=== PATIENT | female | born 1975 | race Caucasian/White ===

== ENCOUNTER 2017-07-08 15:26 | Emergency (ER) | payer SELFPAY ==
[2017-07-08] MEDS ORDERED: SODIUM CHLORIDE 1,000 ML IV STA (16:30)
[2017-07-08 17:35] LABS: BASO % 0.3 % (0-2.0); EOS % 4.6 % (0-4.5); HEMATOCRIT 33.2 % (32.4-45.2); HEMOGLOBIN 11.2 GM/dL (10.7-15.3); LYMPH % 24.2 % (8-40); MCHC 33.6 g/dl (32.0-36.0); MEAN CELL VOLUME 86.2 fl (80-96); MEAN PLT VOLUME 8.4 fl (7.5-11.1); MONO % 7.8 % (3.8-10.2); NEUT % 63.1 % (42.8-82.8); PLATELET COUNT 163 K/MM3 (134-434); RBC 3.85 M/mm3 (3.60-5.2); RDW 13.1 % (11.6-15.6)
[2017-07-08 17:48] LABS: INR 1.1 (0.82-1.09); PROTHROMBIN TIME (PATIENT) 12.4 SEC (9.98-11.88)
[2017-07-08 18:28] VITALS: TEMP 97.5; BMI 32.5
[2017-07-08] MEDS ORDERED: MISOPROSTOL 100 MCG TABLET PV ONE (21:29)
--- NOTE | 2017-07-08 21:33 | PDOC ---
History of Present Illness - General History Source: Patient Exam Limitations: No Limitations - History of Present Illness Initial Comments: 07/08/17 22:11 Patient is a 41 year old female with a significant past medical history of who presents to the ED with complaints of vaginal bleeding that began earlier today. Patient reports coming into the ED on May and was given US that showed demise at 8 weeks. She reports experiencing diffuse abdominal pain that began earlier this morning secondary to vaginal bleeding. Patient reports her last miscarriage was in 2014 prior to this one. Patient currently says she is here for a DNC. Denies nausea, vomiting. Denies chest pain, SOB. Denies contact with sick individuals, out of state travelling. Denies dysuria, constipation, diarrhea. Denies any other symptoms. Allergies: None Social history: Lives with . No smoking. No alcohol. No illicit drugs. Surgical history: x3. 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 <Venkatesh Calvo - Last Filed: 07/08/17 22:11> <Svetlana Zapata - Last Filed: 07/08/17 23:39> - General Chief Complaint: Vaginal Bleeding Stated Complaint: VAGINAL BLEED Time Seen by Provider: 07/08/17 16:30 Past History <Venkatesh Calvo - Last Filed: 07/08/17 22:11> - Past Medical History COPD: No - Reproductive History Is Patient Now?: Yes (#): 7 Para: 3 Cervical CA: No Dysfunctional Uterine Bleeding: No Ectopic : No Endometrial CA: No Polycystic Ovaries: No Therapeutic (s) & number: Yes Tubal Ligation: No Spontaneous : 0 - Immunization History Immunization Up to Date: Yes - Suicide/Smoking/Psychosocial Hx Smoking Status: No Smoking History: Never smoked Have you smoked in the past 12 months: No Number of Cigarettes Smoked Daily: 0 Information on smoking cessation initiated: No Hx Alcohol Use: No Drug/Substance Use Hx: No Substance Use Type: None <Svetlana Zapata - Last Filed: 07/08/17 23:39> - Past Medical History Allergies/Adverse Reactions: Allergies Allergy/AdvReac Type Severity Reaction Status Date / Time No Known Allergies Allergy Verified 07/08/17 18:28 Home Medications: Ambulatory Orders No Home Medications 0 dose .ROUTE UTDICT 04/30/12 Review of Systems - Review of Systems Able to Perform ROS?: Yes Comments:: 07/08/17 22:11 CONSTITUTIONAL: Absent: fever, chills, diaphoresis, generalized weakness, malaise, loss of appetite HEENT: Absent: rhinorrhea, nasal congestion, throat pain, throat swelling, difficulty swallowing, mouth swelling, ear pain, eye pain, visual Changes CARDIOVASCULAR: Absent: chest pain, syncope, palpitations, irregular heart rate, lightheadedness , peripheral edema RESPIRATORY: Absent: cough, shortness of breath, dyspnea with exertion, orthopnea, wheezing, stridor, hemoptysis GASTROINTESTINAL: +Abdominal pain. Absent: abdominal distension, nausea, vomiting, diarrhea, constipation, melena, hematochezia GENITOURINARY: +Vaginal bleeding. Absent: dysuria, frequency, urgency, hesitancy, hematuria, flank pain, genital pain MUSCULOSKELETAL: Absent: myalgia, arthralgia, joint swelling SKIN: Absent: rash, itching, pallor HEMATOLOGIC/IMMUNOLOGIC: Absent: easy bleeding, easy bruising, lymphadenopathy, frequent infections ENDOCRINE: Absent: unexplained weight gain, unexplained weight loss, heat intolerance, cold intolerance NEUROLOGIC: Absent: headache, focal weakness or paresthesias, dizziness, unsteady gait, seizure, mental status changes, bladder or bowel incontinence PSYCHIATRIC: Absent: anxiety, depression, suicidal or homicidal ideation, hallucinations. All Other Systems: Reviewed and Negative <Venkatesh Calvo - Last Filed: 07/08/17 22:11> *Physical Exam - Vital Signs Last Vital Signs Temp Pulse Resp BP Pulse Ox 97.5 F L 103 H 18 88/59 100 07/08/17 18:23 07/08/17 21:02 07/08/17 21:02 07/08/17 21:02 07/08/17 21:02 - Physical Exam Comments: 07/08/17 22:12 GENERAL: Well developed, well nourished. Awake and alert. No acute distress. HEENT: Normocephalic, atraumatic. PERRLA, EOMI. No conjunctival pallor. Sclera are non- icteric. Moist mucous membranes. Oropharynx is clear. NECK: Supple. Full ROM. No JVD. Carotid pulses 2+ and symmetric, without bruits. No thyromegaly. No lymphadenopathy. CARDIOVASCULAR: Regular rate and rhythm. No murmurs, rubs, or gallops. Distal pulses are 2+ and symmetric. PULMONARY: No evidence of respiratory distress. Lungs clear to auscultation bilaterally. No wheezing, rales or rhonchi. ABDOMINAL: Soft. Non-tender. Non-distended. No rebound or guarding. No organomegaly. Normoactive bowel sounds. PELVIC: +Actively bleeding. +Passing large clots. MUSCULOSKELETAL Normal range of motion at all joints. No bony deformities or tenderness. No CVA tenderness. EXTREMITIES: No cyanosis. No clubbing. No edema. No calf tenderness. SKIN: Warm and dry. Normal capillary refill. No rashes. No jaundice. NEUROLOGICAL: Alert, awake, appropriate. Cranial nerves 2-12 intact. No deficits to light touch and temperature in face, upper extremities and lower extremities. No motor deficits in the in face, upper extremities and lower extremities. Normoreflexic in the upper and lower extremities. Normal speech. Toes are down-going bilaterally. PSYCHIATRIC: Cooperative. Good eye contact. Appropriate mood and affect. <Venkatesh Calvo - Last Filed: 07/08/17 22:11> - Vital Signs Last Vital Signs Temp Pulse Resp BP Pulse Ox 97.5 F L 103 H 18 88/59 100 07/08/17 18:23 07/08/17 21:02 07/08/17 21:02 07/08/17 21:02 07/08/17 21:02 <Svetlana Zapata - Last Filed: 07/08/17 23:39> ED Treatment Course - LABORATORY CBC & Chemistry Diagram: 07/08/17 17:18 - ADDITIONAL ORDERS Additional order review: Laboratory Results 07/08/17 07/08/17 07/08/17 19:52 19:11 17:18 PT with INR INR Beta HCG, Quant 56.7 Serum , Qual Positive Blood Type O POSITIVE Antibody Screen Negative 07/08/17 17:18 PT with INR 12.40 H INR 1.10 Beta HCG, Quant Serum , Qual Blood Type Antibody Screen 07/08/17 17:18 RBC 3.85 MCV 86.2 MCHC 33.6 RDW 13.1 MPV 8.4 Neutrophils % 63.1 D Lymphocytes % 24.2 Monocytes % 7.8 Eosinophils % 4.6 H Basophils % 0.3 - Medications Given in the ED: ED Medications Discontinued Medications Generic Name Dose Route Start Last Admin Trade Name Freq PRN Reason Stop Dose Admin Sodium Chloride 1,000 mls @ 1,000 mls/hr 07/08/17 16:30 07/08/17 16:42 Normal Saline - IV 07/08/17 17:29 1,000 mls/hr ASDIR STA Administration Misoprostol 600 mcg 07/08/17 21:29 07/08/17 22:11 Cytotec PV 07/08/17 21:30 600 mcg ONCE ONE Administration <Venkatesh Calvo - Last Filed: 07/08/17 22:11> - LABORATORY CBC & Chemistry Diagram: 07/08/17 22:08 - ADDITIONAL ORDERS Additional order review: Laboratory Results 07/08/17 07/08/17 07/08/17 19:52 19:11 17:18 PT with INR INR Beta HCG, Quant 56.7 Serum , Qual Positive Blood Type O POSITIVE Antibody Screen Negative 07/08/17 17:18 PT with INR 12.40 H INR 1.10 Beta HCG, Quant Serum , Qual Blood Type Antibody Screen 07/08/17 17:18 RBC 3.85 MCV 86.2 MCHC 33.6 RDW 13.1 MPV 8.4 Neutrophils % 63.1 D Lymphocytes % 24.2 Monocytes % 7.8 Eosinophils % 4.6 H Basophils % 0.3 - RADIOLOGY Radiology Studies Ordered: Category Date Time Status TRANSVAGINAL US PREG [US] Stat Ultrasound 07/08/17 19:52 Completed - Medications Given in the ED: ED Medications Discontinued Medications Generic Name Dose Route Start Last Admin Trade Name Freq PRN Reason Stop Dose Admin Sodium Chloride 1,000 mls @ 1,000 mls/hr 07/08/17 16:30 07/08/17 16:42 Normal Saline - IV 07/08/17 17:29 1,000 mls/hr ASDIR STA Administration <Svetlana Zapata - Last Filed: 07/08/17 23:39> *DC/Admit/Observation/Transfer - Attestations Scribe Attestion: 07/08/17 22:12 Documentation prepared by Venkatesh Calvo, acting as registered medical assistant for Svetlana Zapata MD/DO. <Venkatesh Calvo - Last Filed: 07/08/17 22:11> <Svetlana Zapata Denisse - Last Filed: 07/08/17 23:39> Diagnosis at time of Disposition: Complete Anemia Qualifiers: Anemia type: other cause Other causes of anemia: other cause, not classified Qualified Code(s): D64.89 - Other specified anemias - Discharge Dispostion Disposition: HOME Condition at time of disposition: Stable - Referrals Referrals: Viviana Galvan MD [Staff Physician] - Nicholas Meza MD [Staff Physician] - - Patient Instructions Printed Discharge Instructions: DI for Miscarriage Additional Instructions: You need to follow up with your radio assembler or the clinic at [address] [place] [address] [phone] Print Language: BRUNEIAN
--- NOTE | 2017-07-08 21:48 | CON.OBG ---
Consult Consult Specialty:: Gynecology Referred by:: ER - History of Present Illness Chief Complaint: 41yo P4 I was told she was seen in the [facility] practice by Dr. Louise,. however no record of her in [facility] EMR. As per h/o documented IUP in May and HCG = 8000. She denies pain, and dizziness, had some bleeding - History Source History Provided By: Patient Limitations to Obtaining History: Language Barrier - Past Medical History ...LMP: 01/25/15 ...: Yes ...: 6 (SAB x 1) ...Para: 4 ( x 1, c/s x 1) - Past Surgical History Past Surgical History: Yes: (x3) - Alcohol/Substance Use Hx Alcohol Use: No History of Substance Use: reports: None - Smoking History Smoking history: Never smoked Have you smoked in the past 12 months: No Aproximately how many cigarettes per day: 0 Home Medications - Allergies Allergies/Adverse Reactions: Allergies Allergy/AdvReac Type Severity Reaction Status Date / Time No Known Allergies Allergy Verified 07/08/17 18:28 - Home Medications Home Medications: Ambulatory Orders No Home Medications 0 dose .ROUTE UTDICT 04/30/12 Review of Systems - Review of Systems Constitutional: reports: No Symptoms Neck: reports: No Symptoms Cardiovascular: reports: No Symptoms Respiratory: reports: No Symptoms Gastrointestinal: reports: No Symptoms Genitourinary: reports: No Symptoms Integumentary: reports: No Symptoms Neurological: reports: No Symptoms Endocrine: reports: No Symptoms Hematology/Lymphatic: reports: No Symptoms Psychiatric: reports: No Symptoms Pain Intensity: 1 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 Vital Signs: Vital Signs Temperature 97.5 F L 07/08/17 18:23 Pulse Rate 103 H 07/08/17 21:02 Respiratory Rate 18 07/08/17 21:02 Blood Pressure 88/59 07/08/17 21:02 O2 Sat by Pulse Oximetry (%) 100 07/08/17 21:02 Constitutional: Yes: Well Nourished Eyes: Yes: WNL HENT: Yes: WNL Neck: Yes: WNL Cardiovascular: Yes: WNL Respiratory: Yes: WNL Gastrointestinal: Yes: WNL, Normal Bowel Sounds, Soft Pelvis: Yes: WNL External Genitalia: Yes: Normal Internal Exam Deferred: Yes Vaginal Exam: Yes: Bleeding (minimal) Cervix: Yes: Normal (closed, no CMT) Uterus: Yes: Normal Extremities: Yes: WNL Neurological: Yes: WNL ...Motor Strength: WNL Labs: CBC, BMP 07/08/17 17:18 Assessment/Plan 41yo P4 with HCG - 56, Rh+, closed cervix, minimal bleeding currently, 2.5cm endometrium c/w blood clot Presentation c/w completed Ab Recommend 600mcg Cytotec vaginaly to expel remaining blood clot Repeat h/h and Vitals to make sure stable for discharge F/up in the clinic in 1 week Nothing vaginally for 2 weeks, patient instructed
[2017-07-08 22:12] VITALS: BP 104/67; PULSE 92
[2017-07-08 23:05] LABS: HEMOGLOBIN 9.7 GM/dL (10.7-15.3)
[2017-07-08 23:16] LABS: BASO % 0.3 % (0-2.0); EOS % 6.6 % (0-4.5); HEMATOCRIT 29.1 % (32.4-45.2); MCH 29.2 pg (25.7-33.7); MCHC 33.5 g/dl (32.0-36.0); MEAN CELL VOLUME 87.1 fl (80-96); MEAN PLT VOLUME 8.3 fl (7.5-11.1); MONO % 6.3 % (3.8-10.2); NEUT % 56.8 % (42.8-82.8); PLATELET COUNT 151 K/MM3 (134-434); RBC 3.34 M/mm3 (3.60-5.2); RDW 12.7 % (11.6-15.6); WHITE BLOOD COUNT 8.3 K/mm3 (4.0-10.0)
[2017-07-08] MEDS ORDERED: IBUPROFEN 400 MG TABLET (FP) PO ONE (23:22)
== END 2017-07-08 23:52 | disposition home or self-care (01) ==
LOC: JER 15:26
PROC: 3E0337Z Introduction of Electrolytic and Water Balance Substance into Peripheral Vein, Percutaneous Approach (ICD-10-PCS; principal; 2017-07-08)
DX: O26.891 Other specified pregnancy related conditions, first trimester (principal); O03.9 Complete or unspecified spontaneous abortion without complication; Z3A.00 Weeks of gestation of pregnancy not specified
CPT/HCPCS: 36415; 76817-TC; 84702; 84703; 85025; 85610; 86850; 86900; 86901; 99284-25

== ENCOUNTER 2017-07-20 23:17 | Emergency (ER) | payer OTHER ==
[2017-07-20 23:31] VITALS: BP 102/65; PULSE 88; TEMP 98.5; BMI 29.8
--- NOTE | 2017-07-21 02:20 | PDOC ---
History of Present Illness - General Chief Complaint: Vaginal Sxs Stated Complaint: HEADACHE/FEVER Time Seen by Provider: 07/21/17 00:45 History Source: Patient Exam Limitations: No Limitations - History of Present Illness Travel History: No Initial Comments: 07/21/17 02:21 41-year-old female with no medical history presents to the emergency department complaining of fever/Tmax 100.5. Patient states she comes to the emergency department today due to a foul vaginal odor/pinkish discharge times one day without chills, nausea/vomiting, headache, dizziness, lightheadedness, neck stiffness/pain, nasal congestion, rhinorrhea, earache, sore throat, cough,'s shortness of breath, abdominal pains, flank pains, urinary symptoms: Frequency/ urgency/hesitancy, hematuria. Past History - Past Medical History Allergies/Adverse Reactions: Allergies Allergy/AdvReac Type Severity Reaction Status Date / Time No Known Allergies Allergy Verified 07/20/17 23:24 Home Medications: Ambulatory Orders No Home Medications 0 dose .ROUTE UTDICT 04/30/12 Metronidazole 0.75% Vag. Gel [Metrogel 0.75% *Vaginal Gel* -] 1 applic VG HS #1 tube 07/21/17 COPD: No - Reproductive History (#): 7 Para: 3 Cervical CA: No Dysfunctional Uterine Bleeding: No Ectopic : No Endometrial CA: No Polycystic Ovaries: No Therapeutic (s) & number: Yes Tubal Ligation: No Spontaneous : 0 - Immunization History Immunization Up to Date: Yes - Suicide/Smoking/Psychosocial Hx Smoking Status: No Smoking History: Never smoked Have you smoked in the past 12 months: No Number of Cigarettes Smoked Daily: 0 Hx Alcohol Use: No Drug/Substance Use Hx: No Substance Use Type: None Review of Systems - Review of Systems Able to Perform ROS?: Yes Comments:: 07/21/17 02:18 CONSTITUTIONAL: +subjective fever/chills Absent: diaphoresis, generalized weakness, malaise, loss of appetite HEENT: Absent: rhinorrhea, nasal congestion, throat pain, throat swelling, difficulty swallowing, mouth swelling, ear pain, eye pain, visual Changes CARDIOVASCULAR: Absent: chest pain, loss of consciousness, palpitations, irregular heart rate, peripheral edema RESPIRATORY: Absent: cough, shortness of breath, dyspnea with exertion, orthopnea, wheezing, stridor, hemoptysis GASTROINTESTINAL: Absent: abdominal pain, abdominal distension, nausea, vomiting, diarrhea, constipation, melena, hematochezia GENITOURINARY: Absent: dysuria, frequency, urgency, hesitancy, hematuria, flank pain, genital pain MUSCULOSKELETAL: Absent: myalgia, arthralgia, joint swelling SKIN: Absent: rash, itching, pallor HEMATOLOGIC/IMMUNOLOGIC: Absent: easy bleeding, easy bruising, lymphadenopathy, frequent infections ENDOCRINE: Absent: unexplained weight gain, unexplained weight loss, heat intolerance, cold intolerance Is the patient limited Yakut proficient: No *Physical Exam - Vital Signs Last Vital Signs Temp Pulse Resp BP Pulse Ox 98.5 F 88 20 102/65 99 07/20/17 23:24 07/20/17 23:24 07/20/17 23:24 07/20/17 23:24 07/20/17 23:24 - Physical Exam Comments: 07/21/17 02:19 GENERAL: Well developed, well nourished. Awake and alert. No acute distress. HEENT: Normocephalic, atraumatic. PERRLA, EOMI. No conjunctival pallor. Sclera are non- icteric. Moist mucous membranes. Oropharynx is clear. NECK: Supple. Full ROM. No JVD. Carotid pulses 2+ and symmetric, without bruits. No thyromegaly. No lymphadenopathy. CARDIOVASCULAR: Regular rate and rhythm. No murmurs, rubs, or gallops. Distal pulses are 2+ and symmetric. PULMONARY: No evidence of respiratory distress. Lungs clear to auscultation bilaterally. No wheezing, rales or rhonchi. ABDOMINAL: Soft. Non-tender. Non-distended. No rebound or guarding. No organomegaly. Normoactive bowel sounds. MUSCULOSKELETAL Normal range of motion at all joints. No bony deformities or tenderness. No CVA tenderness. EXTREMITIES: No cyanosis. No clubbing. No edema. No calf tenderness. SKIN: Warm and dry. Normal capillary refill. No rashes. No jaundice. Pelvic: External genitalia normal without lesions. Vaginal vault is copious cottage cheese like discharge. Cervix is long and closed. No cervical motion tenderness. Uterus is nontender and normal in size. Adnexa are nontender and without masses. 07/21/17 02:57 Progress Note - Progress Note Progress Note: Pt req for HIV test *DC/Admit/Observation/Transfer Diagnosis at time of Disposition: Bacterial vaginosis - Discharge Dispostion Condition at time of disposition: Stable Admit: No - Prescriptions Prescriptions: Metronidazole 0.75% Vag. Gel [Metrogel 0.75% *Vaginal Gel* -] 1 applic VG HS #1 tube - Referrals Referrals: George Celaya MD [Staff Physician] - - Patient Instructions Printed Discharge Instructions: DI for Bacterial Vaginosis Additional Instructions: Increase fluids Pelvic rest Medication as prescribed Return back to the emergency department for severe/persistent or worsening symptoms Follow-up with your supervisor vacuum metalizing or the one listed on your discharge - Post Discharge Activity
[2017-07-21] MEDS ORDERED: metroNIDAZOLE 0.75% VAGINAL GEL 70 GM TUBE VG ONE (03:41)
== END 2017-07-21 04:19 | disposition home or self-care (01) ==
LOC: JER 23:17
DX: N76.0 Acute vaginitis (principal); B96.89 Other specified bacterial agents as the cause of diseases classified elsewhere
CPT/HCPCS: 36415; 84702; 87389; 99282-25

== ENCOUNTER 2017-10-07 10:22 | Emergency (ER) | payer OTHER ==
[2017-10-07 10:29] VITALS: BP 100/49; PULSE 90; TEMP 97.7; BMI 30.2
--- NOTE | 2017-10-07 11:14 | PDOC ---
*Physical Exam - Vital Signs Last Vital Signs Temp Pulse Resp BP Pulse Ox 97.7 F 90 18 100/49 100 10/07/17 10:26 10/07/17 10:26 10/07/17 10:26 10/07/17 10:26 10/07/17 10:26 Medical Decision Making - Medical Decision Making 10/07/17 14:32 Ms Crenshaw is a 41 yo F with a history of hematuria Pt UA consistent with UTI Laboratory Tests 10/07/17 11:55 Urine Blood 2+ H Urine Nitrite Positive Ur Leukocyte Esterase 3+ H Urine WBC (Auto) 241 Urine RBC (Auto) 76 Patient was seen as well by physician bioinformatics assistant who performed the history and physical exam and has also dictated a record of this visit. Patient provided with appropriate treatment management and follow-up care instructions. I agree with plan per PA. For further details please see PA dictation. *DC/Admit/Observation/Transfer Diagnosis at time of Disposition: UTI (urinary tract infection) Qualifiers: Urinary tract infection type: acute cystitis Hematuria presence: with hematuria Qualified Code(s): N30.01 - Acute cystitis with hematuria - Discharge Dispostion Disposition: HOME Condition at time of disposition: Good - Prescriptions Prescriptions: Nitrofurantoin Monohyd/M-Cryst [Macrobid -] 100 mg PO BID #14 capsule - Referrals Referrals: Que Penn MD [Staff Physician] - Call tomorrow - Patient Instructions Printed Discharge Instructions: DI for Urinary Tract Infection (UTI) Additional Instructions: Discharge Instructions: -You have a urinary tract infection -A prescription has been sent to your pharmacy to treat the infection -Please drink at least 64oz of water daily -Follow up with either your primary doctor or Dr. Penn within 1 week -return to the ER with any worsening or concerning symptoms - Post Discharge Activity Forms/Work/School Notes: Back to Work
--- NOTE | 2017-10-07 11:26 | PDOC ---
History of Present Illness - General Chief Complaint: Vaginal Bleeding Stated Complaint: PAIN Time Seen by Provider: 10/07/17 11:13 History Source: Patient Exam Limitations: No Limitations - History of Present Illness Initial Comments: CHIEF COMPLAINT: 41 y/o afebrile female with no significant PMH c/o burning with urination and lower abdominal and back pain x 3 days. HISTORY OF PRESENT ILLNESS: She is unsure if she has blood in her urine because she has her period. She denies f/c, n/v/d, Cp, SOB. Vital signs on arrival are within normal limits. REVIEW OF SYSTEMS: GENERAL/CONSTITUTIONAL: No fever/chills. No weakness. No weight change. HEAD, EYES, EARS, NOSE AND THROAT: No change in vision. No ear pain or discharge. No sore throat. CARDIOVASCULAR: No chest pain or shortness of breath. RESPIRATORY: No cough, wheezing, or hemoptysis. GASTROINTESTINAL: +lower abdominal pain. No nausea, vomiting, diarrhea, constipation. GENITOURINARY: +dysuria. ?hematuria. No frequency. MUSCULOSKELETAL: +low back pain. No joint or muscle swelling or pain. No neck pain. SKIN: No rash or easy bruising. NEUROLOGIC: No headache, vertigo, loss of consciousness, or loss of sensation. PHYSICAL EXAM: GENERAL: The patient is awake, alert, and fully oriented, in no acute distress. She is well appearing and ambulatory. HEAD: Normal with no signs of trauma. ENT: Pupils equal, round and reactive to light, extraocular movements intact, sclera anicteric, conjunctiva clear. Neck supple. LUNGS: Clear to auscultation bilaterally. Normal excursion. No respiratory distress or use of accessory muscles. CV: RRR, S1/S2, no MRG. Cap refill < 2 sec. ABDOMEN: +suprapubic TTP. No rebound, guarding, rigidity. Soft, non-distended, no hepatomegaly or splenomegaly, no masses. No flank pain with palpation. BACK: No CVA TTP b/l. EXTREMITIES: Normal range of motion, no edema. NEUROLOGICAL: Normal speech, normal gait. CN II-XII grossly intact. SKIN: Warm, dry, normal turgor, no rashes or lesions noted. Past History - Past Medical History Allergies/Adverse Reactions: Allergies Allergy/AdvReac Type Severity Reaction Status Date / Time No Known Allergies Allergy Verified 10/07/17 10:26 Home Medications: Ambulatory Orders No Home Medications 0 dose .ROUTE UTDICT 04/30/12 metroNIDAZOLE 0.75% VAG. GEL [Metrogel 0.75% *Vaginal Gel* -] 1 applic VG HS #1 tube 07/21/17 Nitrofurantoin Monohyd/M-Cryst [Macrobid -] 100 mg PO BID #14 capsule 10/07/17 COPD: No DVT: No - Reproductive History (#): 7 Para: 3 Cervical CA: No Dysfunctional Uterine Bleeding: No Ectopic : No Endometrial CA: No Polycystic Ovaries: No Therapeutic (s) & number: Yes Tubal Ligation: No Spontaneous : 0 - Immunization History Immunization Up to Date: Yes - Suicide/Smoking/Psychosocial Hx Smoking Status: No Smoking History: Never smoked Have you smoked in the past 12 months: No Number of Cigarettes Smoked Daily: 0 Information on smoking cessation initiated: No Hx Alcohol Use: No Drug/Substance Use Hx: No Substance Use Type: None *Physical Exam - Vital Signs Last Vital Signs Temp Pulse Resp BP Pulse Ox 97.7 F 90 18 100/49 100 10/07/17 10:26 10/07/17 10:26 10/07/17 10:26 10/07/17 10:26 10/07/17 10:26 Medical Decision Making - Medical Decision Making A/P: 41 y/o female with signs and symptoms of UTI. Plan is as follows: 1. UA/culture/hcg hcg - negative UA Nitrite+ Patient has UTI. She was given results. Will call rx for macrobid. Suggested she drink at least 64oz of water daily and complete entire course of macrobid Instructed her to f/u with PMD within 1 week and return to the ER with any worsening or concerning symptoms. The patient verbalizes understanding of all instructions, has no further questions and is awaiting discharge. *DC/Admit/Observation/Transfer Diagnosis at time of Disposition: UTI (urinary tract infection) Qualifiers: Urinary tract infection type: acute cystitis Hematuria presence: with hematuria Qualified Code(s): N30.01 - Acute cystitis with hematuria - Discharge Dispostion Disposition: HOME Condition at time of disposition: Good - Prescriptions Prescriptions: Nitrofurantoin Monohyd/M-Cryst [Macrobid -] 100 mg PO BID #14 capsule - Referrals Referrals: Que Penn MD [Staff Physician] - Call tomorrow - Patient Instructions Printed Discharge Instructions: DI for Urinary Tract Infection (UTI) Additional Instructions: Discharge Instructions: -You have a urinary tract infection -A prescription has been sent to your pharmacy to treat the infection -Please drink at least 64oz of water daily -Follow up with either your primary doctor or Dr. Penn within 1 week -return to the ER with any worsening or concerning symptoms - Post Discharge Activity Forms/Work/School Notes: Back to Work
[2017-10-07 12:02] LABS: URINE APPEARANCE CLOUDY; URINE BILIRUBIN NEGATIVE (<2.0 mg/dL); URINE BLOOD 2+ (NEGATIVE); URINE COLOR YELLOW; URINE GLUCOSE (UA) NEGATIVE (NEGATIVE); URINE KETONE NEGATIVE (NEGATIVE); URINE NITRITE POSITIVE (NEGATIVE); URINE UROBILINOGEN NEGATIVE mg/dL (0.2-1.0)
[2017-10-07 12:15] LABS: URINE LEUK ESTERASE 3+ (NEGATIVE); URINE PROTEIN 2+ (NEGATIVE)
[2017-10-07 12:16] LABS: EPI CELLS RARE /HPF (FEW); URINE BACTERIA RARE /hpf (NONE SEEN); URINE MUCUS FEW; YEAST FEW
== END 2017-10-07 14:18 | disposition home or self-care (01) ==
LOC: JER 10:22
DX: N30.01 Acute cystitis with hematuria (principal); B96.89 Other specified bacterial agents as the cause of diseases classified elsewhere
CPT/HCPCS: 81003; 81015; 84703; 87086; 87186; 99281-25

== ENCOUNTER 2018-01-01 12:48 | Emergency (ER) | payer OTHER ==
--- NOTE | 2018-01-01 13:12 | PDOC ---
History of Present Illness - General Chief Complaint: Pain Stated Complaint: NECK PAIN Time Seen by Provider: 01/01/18 13:02 - History of Present Illness Initial Comments: 42 year old previously healthy female s/p 6 days post op from anterio-lateral C4-C5 spinal fusion presenting with left sided neck swelling, pain, and recent voice change. States that she just got her prescription filled for her oxycodone 2 days prior and admits to relief of her neck pain with oxy usage. However, she is concerned about her left sided anterior neck swelling. She also noted worsening vocal quality over the past day. Denies SOB, fevers, chills, nausea, vomiting, headache, wheezing, or other symptoms. 01/01/18 14:58 Past History - Past Medical History Allergies/Adverse Reactions: Allergies Allergy/AdvReac Type Severity Reaction Status Date / Time No Known Allergies Allergy Verified 01/01/18 13:22 Home Medications: Ambulatory Orders Oxycodone HCl 5 mg PO Q6H PRN 01/01/18 COPD: No DVT: No - Reproductive History (#): 7 Para: 3 Cervical CA: No Dysfunctional Uterine Bleeding: No Ectopic : No Endometrial CA: No Polycystic Ovaries: No Therapeutic (s) & number: Yes Tubal Ligation: No Spontaneous : 0 - Immunization History Immunization Up to Date: Yes - Suicide/Smoking/Psychosocial Hx Smoking Status: No Smoking History: Never smoked Have you smoked in the past 12 months: No Number of Cigarettes Smoked Daily: 0 Hx Alcohol Use: No Drug/Substance Use Hx: No Substance Use Type: None Review of Systems - Review of Systems Constitutional: No: Chills, Diaphoresis, Fever HEENTM: No: Blurred Vision, Tearing Respiratory: No: Cough, Shortness of Breath Cardiac (ROS): No: Chest Pain, Edema, Irregular Heart Rate ABD/GI: No: Diarrhea, Nausea, Vomiting : No: Burning, Dysuria, Discharge Musculoskeletal: Yes: Back Pain. No: Muscle Pain, Muscle Weakness Integumentary: No: Bruising, Change in Color, Erythema, Flushing Neurological: No: Headache, Numbness, Paresthesia *Physical Exam - Physical Exam General Appearance: Yes: Nourished, Appropriately Dressed. No: Apparent Distress HEENT: positive: EOMI, MARK, Normal ENT Inspection (No airway erythema/ swelling / stridor). negative: Normal Voice (Slightly coarse vocal quality) Neck: positive: Trachea midline, Normal Thyroid, Supple, Other (left sided neck swelling and tender to palpation). negative: Tender, Rigid Respiratory/Chest: positive: Lungs Clear, Normal Breath Sounds. negative: Chest Tender Musculoskeletal: positive: Normal Inspection. negative: Decreased Range of Motion Extremity: positive: Normal Capillary Refill, Normal Inspection, Normal Range of Motion. negative: Tender Integumentary: positive: Normal Color, Dry, Warm Neurologic: positive: laboratory mechanic helper II-XII NML intact, Fully Oriented, Alert, Normal Mood/ Affect, Normal Response, Motor Strength 10/19 ED Treatment Course - LABORATORY CBC & Chemistry Diagram: 01/01/18 14:30 01/01/18 14:30 Medical Decision Making - Medical Decision Making 42 year old female with recetn C4-C5 cervical spine fusion (anterior approach) with new vocal quality change concerning for airway obstruction that is corroborated by CT neck demonstrating mild airway obstruction with collection around surgical site concerning for abscess (peripheral enhancement). Patient afebrile, stable vitals, moving air well with pulm exam CTABL, no stridor, or wheezing. Patient pending transfer to [facility] for further eval by her ortho surgeon (Dr. Whitt) after multiple calls and texts with Dr. Whitt, [facility] residents, and sign out to Dr. Bradshaw. *DC/Admit/Observation/Transfer Diagnosis at time of Disposition: Abscess - Discharge Dispostion Disposition: TRANSFER ACUTE CARE/OTHER HOSP Condition at time of disposition: Stable - Referrals Referrals: Lon Marie MD [Primary Care Provider] - - Patient Instructions - Post Discharge Activity
[2018-01-01 13:23] VITALS: BMI 31.7
[2018-01-01 14:36] LABS: BASO % 0.6 % (0-2.0); EOS % 8.9 % (0-4.5); HEMATOCRIT 37.6 % (32.4-45.2); HEMOGLOBIN 12.6 GM/dL (10.7-15.3); LYMPH % 30.1 % (8-40); MCH 27.5 pg (25.7-33.7); MCHC 33.4 g/dl (32.0-36.0); MEAN CELL VOLUME 82.4 fl (80-96); MEAN PLT VOLUME 7.5 fl (7.5-11.1); MONO % 6.8 % (3.8-10.2); NEUT % 53.6 % (42.8-82.8); PLATELET COUNT 239 K/MM3 (134-434); RBC 4.56 M/mm3 (3.60-5.2); RDW 15.6 % (11.6-15.6)
[2018-01-01 15:03] LABS: CHLORIDE 104 mmol/L (98-107); SODIUM 139 mmol/L (136-145)
[2018-01-01 15:13] LABS: ALBUMIN 3.5 g/dl (3.4-5.0); ALK PHOS 62 U/L (45-117); ANION GAP 7 (8-16); BILIRUBIN,TOTAL 0.4 mg/dL (0.2-1.0); BLOOD UREA NITROGEN 7 mg/dL (7-18); CALCIUM 9.1 mg/dL (8.5-10.1); CO2 28 mmol/L (21-32); CREATININE 0.7 mg/dL (0.55-1.02); GLUCOSE,RANDOM 88 mg/dL (74-106); POTASSIUM 4.7 mmol/L (3.5-5.1); SGPT/ALT 19 U/L (12-78); TOT PROT 7.7 g/dl (6.4-8.2)
[2018-01-01 15:14] LABS: SGOT/AST 33 U/L (15-37)
--- NOTE | 2018-01-01 15:15 | PDOC ---
Attending Attestation - Medical Decision Making 01/01/18 18:54 Documentation prepared by Berna Carrero, acting as medical billing specialist for Danika Sun MD. <Berna Carrero - Last Filed: 01/01/18 19:10> - Resident Resident Name: Sunshine Flannery - ED Attending Attestation I have performed the following: I have examined & evaluated the patient, The case was reviewed & discussed with the resident, I agree w/resident's findings & plan, Exceptions are as noted - HPI HPI: 01/01/18 21:37 The patient is a 42 year old female s/p cervical surgery 6 days ago, who presents to the emergency department complaining of pain and swelling on the left side of her neck. She reports pain alleviated after taking the oxycodone her surgeon prescribed. The patient notes a recent hoarseness to her voice, worsening since today which prompted her to come in. The patient denies chest pain, shortness of breath, headache, and dizziness. Denies fevers, chills, nausea, vomiting, diarrhea, and constipation. Denies dysuria, frequency, urgency, and hematuria. Denies any other kinds of injury. Allergies: NKA Past surgical history: x3 Social history: No reported cigarette, alcohol, or drug use. PCP: Dr. Lon Marie - Physicial Exam PE: 01/01/18 15:15 GENERAL: Awake, alert, and fully oriented, in no acute distress. No hoarseness. HEAD: No signs of trauma EYES: PERRLA, EOMI, sclera anicteric, conjunctiva clear ENT: oropharynx clear with no edema NECK: L side of neck with edema, wound c/d/i, minimal erythema LUNGS: Breath sounds equal, clear to auscultation bilaterally. No wheezes, and no crackles. No increased WOB. HEART: Regular rate and rhythm, normal S1 and S2, no murmurs, rubs or gallops ABDOMEN: Soft, nontender, normoactive bowel sounds. No guarding, no rebound. No masses EXTREMITIES: Normal range of motion, no edema. No clubbing or cyanosis. No cords, erythema, or tenderness NEUROLOGICAL: Normal speech, cranial nerves intact, 5/5 strength in all 4 extremities, normal sensation to light touch in all 4 extremities SKIN: Warm, Dry, normal turgor, no rashes or lesions noted. - Medical Decision Making 01/01/18 15:17 42yo F POD 6 from cervical surgery presents to the ED with increasing edema to L neck wound. Vitals with low BP, however consistent with BPs during previous ED visits. Pt also states her BP runs low. Will discuss case with pt's surgeon and order labs, CT of the neck and reassess. 01/01/18 17:43 CT neck with IV contrast reveals rim enhancing collection with mild airway involvement. Case discussed with Dr. horta (by Dr. Flannery) who recommends transfer. call placed to [facility] transfer center 01/01/18 19:[address] Bay from ENT, states no need for any airway intervention and pt stable for transfer given no SOB or resp distress. Awaiting transfer acceptance. Case signed out to overnight attending for f/u on transfer. <Danika Sun - Last Filed: 01/01/18 21:40> ED Treatment Course - LABORATORY CBC & Chemistry Diagram: 01/01/18 14:30 01/01/18 14:30 - ADDITIONAL ORDERS Additional order review: Laboratory Results 01/01/18 01/01/18 15:36 14:30 Sodium 139 Potassium 4.7 Chloride 104 Carbon Dioxide 28 Anion Gap 7 L BUN 7 Creatinine 0.7 Creat Clearance w eGFR > 60 Random Glucose 88 Calcium 9.1 Total Bilirubin 0.4 AST 33 ALT 19 Alkaline Phosphatase 62 Total Protein 7.7 Albumin 3.5 Urine HCG, Qual Negative 01/01/18 14:30 RBC 4.56 MCV 82.4 MCHC 33.4 RDW 15.6 D MPV 7.5 Neutrophils % 53.6 Lymphocytes % 30.1 Monocytes % 6.8 Eosinophils % 8.9 H Basophils % 0.6 - RADIOLOGY Radiograph Interpretation: 01/01/18 18:[address] was reviewed by Dr. Sun and over-read by Radiology. IMPRESSION: Postsurgical changes are noted. A rim-enhancing prevertebral fluid collection containing a small amount of air/ gas is noted centered at the C4-C5 disc level - ? representing an abscess. The previously noted prevertebral fluid collection communicates via a narrow fluid-filled tract with a small area of fluid accumulation within the left submandibular triangle. Probable 1 cm left thyroid lobe nodule. Correlate with sonography. <Berna Carrero - Last Filed: 01/01/18 19:10> - LABORATORY CBC & Chemistry Diagram: 01/01/18 14:30 01/01/18 14:30 <Danika Sun - Last Filed: 01/01/18 21:40>
--- NOTE | 2018-01-01 21:45 | PDOC ---
*Physical Exam - Vital Signs Last Vital Signs Temp Pulse Resp BP Pulse Ox 99.2 F 70 18 106/69 100 01/01/18 12:48 01/01/18 19:30 01/01/18 19:30 01/01/18 19:30 01/01/18 19:30 - Physical Exam Comments: 01/01/18 21:49 GENERAL: Awake, alert, and fully oriented, in no acute distress HEAD: No signs of trauma, normocephalic, atraumatic EYES: PERRLA, EOMI, sclera anicteric, conjunctiva clear ENT: Left sided ant. neck edema, wound site c/d/i. Hearing grossly normal, nares patent, oropharynx clear without exudates. Moist mucosa NECK: Normal ROM, supple, no lymphadenopathy, JVD, or masses LUNGS: No distress, speaks full sentences, clear to auscultation bilaterally HEART: Regular rate and rhythm, normal S1 and S2, no murmurs, rubs or gallops, peripheral pulses normal and equal bilaterally. EXTREMITIES : Normal inspection, Normal range of motion, no edema. No clubbing or cyanosis. SKIN: Warm, Dry, normal turgor, no rashes or lesions noted ED Treatment Course - LABORATORY CBC & Chemistry Diagram: 01/01/18 14:30 01/01/18 14:30 - ADDITIONAL ORDERS Additional order review: Laboratory Results 01/01/18 01/01/18 15:36 14:30 Sodium 139 Potassium 4.7 Chloride 104 Carbon Dioxide 28 Anion Gap 7 L BUN 7 Creatinine 0.7 Creat Clearance w eGFR > 60 Random Glucose 88 Calcium 9.1 Total Bilirubin 0.4 AST 33 ALT 19 Alkaline Phosphatase 62 Total Protein 7.7 Albumin 3.5 Urine HCG, Qual Negative 01/01/18 14:30 RBC 4.56 MCV 82.4 MCHC 33.4 RDW 15.6 D MPV 7.5 Neutrophils % 53.6 Lymphocytes % 30.1 Monocytes % 6.8 Eosinophils % 8.9 H Basophils % 0.6 Medical Decision Making - Medical Decision Making 01/01/18 21:45 42 yo F s/p 6 days post op anterio-lateral C4-C5 spinal fusion p/w L left sided anterior neck swelling/pain, and recent hoarsness. VSS, AF. Recieved handoff from Dr. Flannery. Patient CBC, CMP: Unremarkable. WBC 7.0. CT SOFT TISSUE NECK with C4-C5 rim enhancing prevertebral fluid collection. Possible abscess. Patient surgery performed at [facility] Dr. Whitt Ortho contact [phone]. Pt. airway cleared by Dr. HUMBERTO SANTOS [facility]. Safe for transfer to [facility]. ED Course: 01/01/18 21:[address] Whitt [phone]. Awaiting call back. Attempting to arrange transfer to facility. 01/01/18 21:[address] Whitt [phone]. Awaiting call back 01/01/18 21:[address] Whitt. Awaiting call back 01/01/18 21:[address] [facility] . Answering service paged Orthopedic service and provided [facility] call back number. Awaiting call back. 01/01/18 21:56 Percocet x 1 01/01/18 22:06 Dr. Hinson resident ortho service accepts transfer. Transfer to Dr. Whitt. *DC/Admit/Observation/Transfer Diagnosis at time of Disposition: Abscess - Discharge Dispostion Disposition: TRANSFER ACUTE CARE/OTHER HOSP Condition at time of disposition: Stable Decision to Admit order: No - Referrals Referrals: Lon Marie MD [Primary Care Provider] - - Patient Instructions - Post Discharge Activity
[2018-01-02 07:58] VITALS: BP 102/69; PULSE 77; TEMP 98
== END 2018-01-02 07:59 | disposition short-term general hospital (02) ==
LOC: JER 12:48
DX: L02.11 Cutaneous abscess of neck (principal); Z98.1 Arthrodesis status; T81.89XA Other complications of procedures, not elsewhere classified, initial encounter
CPT/HCPCS: 36415; 70491-TC; 80053; 84703; 85025; 99284-25

== ENCOUNTER 2019-07-15 11:05 | Inpatient (IN) | payer OTHER ==
[2019-07-15] MEDS ORDERED: CITRIC ACID/SODIUM CITRATE 30 ML UNIT-DOSE CUP PO ONE (13:00)
[2019-07-15] MEDS ORDERED: ELECTROLYTE-148 SOLN 500 ML IV SCH (13:00)
[2019-07-15 13:06] VITALS: BMI 32.1
[2019-07-15] MEDS ORDERED: ELECTROLYTE-148 SOLN 1,000 ML IV SCH ×2 (13:15→13:30)
[2019-07-15] MEDS ORDERED: ELECTROLYTE-148 SOLN 500 ML IV ONE (13:15)
--- NOTE | 2019-07-15 13:17 | HP ---
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: No: Alzheimer's, CVA, Dementia, Migraine, Multiple Sclerosis, Peripheral Neuropathy, Parkinson's, Seizure, Syncope, TIA, Vertigo, Other Cardiovascular: No: AFIB, Aneurysm, Aortic Insufficiency, Aortic Stenosis, CAD, CHF, Deep Vein Thrombosis, HTN, Hyperlipdemia, CO, Mitral Insufficiency, Mitral Stenosis, Murmur, Pulmonary Hypertension, Other Pulmonary: No: Asthma, Bronchitis, Cancer, COPD, O2 Dependent, Pneumonia, Previously Intubated, Pulmonary Embolus, Pulmonary Fibrosis, Sleep Apnea, Other Gastrointestinal: No: Ascites, Cancer, Constipation, Crohn's Disease, Diverticulitis, Diverticulosis, Esophageal Varices, Gastritis, GERD, GI Bleed, Hemorrhoids, Hiatal Hernia, Inflamatory Bowel Disease, Irritable Bowel Disease, Pancreatitis, Peptic Ulcer Disease, Ulcerative Colitis, Other Hepatobiliary: No: Cirrhosis, Cholelithiasis, Cholecystitis, Choledocholithiasis , Hepatitis A, Hepatitis B, Hepatitis C, Other Renal/: No: Renal Failure, Renal Inusuff, BPH, Cancer, Hematuria, Hemodialysis , Neurogenic Bladder, Renal Calculi, UTI, Other Reproductive: No: Ectopic , Endometriosis, Fibroids, PID, Polycystic Ovary Syndrome, Postmenopausal, Other ...: 11 ...Para: 4 ...Term: 4 ...Spon : 3 ...Induced : 3 ...LMP: 10/15/18 ... Weeks Gestation by Dates: 39 ...EDC by Dates: 07/22/19 ...EDC by Sono: 07/22/19 Heme/Onc: Yes: Anemia Infectious Disease: No: AIDS, C-Diff, Herpes Zoster, HIV, MRSA, STD's, Tuberculosis, VREF, Other Psych: No: Addictions, Anxiety, Bipolar, Depression, Panic, Psychosis, Schizophrenia, Other - Past Surgical History Past Surgical History: Yes: (x3) Hx Myomectomy: No Hx Transabdominal Cerclage: No - Smoking History Smoking history: Never smoked Have you smoked in the past 12 months: No Aproximately how many cigarettes per day: 0 - Alcohol/Substance Use Hx Alcohol Use: No History of Substance Use: reports: None - Social History Usual Living Arrangement: Yes: With Spouse Do you think of yourself as: Straight/Heterosexual ADL: Independent History of Recent Travel: No Home Medications - Allergies Allergies/Adverse Reactions: Allergies Allergy/AdvReac Type Severity Reaction Status Date / Time No Known Allergies Allergy Verified 01/01/18 13:22 - Home Medications Home Medications: Ambulatory Orders Ibuprofen 600 mg PO Q6H PRN #30 tablet 07/15/19 Review of Systems - Review of Systems Constitutional: denies: No Symptoms, Chills, Diaphoresis, Fever, Lethargy, Loss of Appetite, Malaise, Night Sweats, Unintentional Wgt. Loss, Weakness, Other Cardiovascular: denies: No Symptoms, Chest Pain, Edema, Palpitations, Shortness of Breath, Other Respiratory: denies: No Symptoms, Cough, Exercise Intolerance, Hemoptysis, Orthopnea, PND, Snoring, SOB, SOB on Exertion, Wheezing, Other Gastrointestinal: denies: No Symptoms, Abdominal Pain, Bloating, Constipation, Diarrhea, Dysphagia, Indigestion, Melena, Nausea, Rectal Bleeding, Vomiting, Vomiting Blood, Other Physical Exam - Maternity Vital Signs: Vital Signs Temperature 97.7 F 07/15/19 12:50 Pulse Rate 86 07/15/19 12:50 Respiratory Rate 20 07/15/19 12:50 Blood Pressure 97/72 07/15/19 12:50 O2 Sat by Pulse Oximetry (%) - Abdominal Exam/OB Number of Fetuses: Single Presentation: Vertex Contractions: Yes Regularity: Irregular Intensity: Unaware Monitor Mode: External Category: I Accelerations: Non-Uniform Decelerations: None - Vaginal Exam/OB Vaginal Bleediing: No Speculum Exam: No Amniotic Membrane Status: Intact Presentation: Vertex/Position - Physical Exam Edema: No Imaging - Results Ultrasound: Report Reviewed Problem List - Problems (1) 39 weeks gestation of Code(s): Z3A.39 - 39 WEEKS GESTATION OF Assessment/Plan 43yo @ 39wks here for scheduled RLTCS, BTL Admit to L&D NPO, IVFs Ancef SCDs Ascencio Risks reviewed including bleeding, infection and injury to bladder/bowel/adnexa/ vessels. Risk of regret with BTL, still desires. Reviewed as permanent All questions answered. Consents signed. Tasha Joseph MD
[2019-07-15] MEDS ORDERED: OXYTOCIN 20 UNITS in 0.9% NS 20 UNIT/1,000 ML INFUS.BAG IV ONE ×2 (13:30→15:08)
[2019-07-15] MEDS ORDERED: morphine SULFATE/PF 0.5 MG/ML (2cc Syringe - QUVA) ONE (13:58)
[2019-07-15] MEDS ORDERED: SUCCINYLCHOLINE CHLORIDE 200 MG/10 ML SYRINGE ONE (13:59)
[2019-07-15] MEDS ORDERED: PHENYLEPHRINE HCL 10 MG/1 ML SINGLE DOSE VIAL ONE (13:59)
[2019-07-15] MEDS ORDERED: SODIUM CHLORIDE 0.9% P/F 10 ML VIAL IJ ONE (14:02)
[2019-07-15] MEDS ORDERED: ONDANSETRON 4 MG/2 ML VIAL IVPUSH PRN (14:57)
--- NOTE | 2019-07-15 15:21 | OP ---
Operative Note - Note: Operative Date: 07/15/19 Pre-Operative Diagnosis: 39week , 3 prior C/S, GDM- non controlled, desires permanent sterilization Operation: Repeat Low Transverse , Bilateral Tubal Ligation Findings: VMI, ROT, meconium, no nuchal. Weight 7.9lbs, Apgars 8,9. Normal tubes and ovaries bilaterally Post-Operative Diagnosis: Same as Pre-op Surgeon: Kari Joseph Jewel Staker: Bartolome Harris Anesthesia: Spinal Estimated Blood Loss (mls): 700 Drains, Volume Out (mls): 500 (clear urine) Operative Report Dictated: Yes
[2019-07-15] MEDS ORDERED: METHYLERGONOVINE MALEATE 0.2 MG/1 ML AMP IM PRN (15:23)
[2019-07-15] MEDS ORDERED: IBUPROFEN 800 MG/8 ML IJ IVPB PRN (15:23)
[2019-07-15] MEDS ORDERED: SENNOSIDES/DOCUSATE COMBO (SENNA PLUS) TABLET (UD) PO PRN (15:23)
[2019-07-15] MEDS ORDERED: OXYTOCIN 20 UNITS in 0.9% NS 20 UNIT/1,000 ML INFUS.BAG IV SCH (15:30)
[2019-07-15] MEDS: FERROUS SO4 325 MG TABLET (FP) PO SCH (22:48)
--- NOTE | 2019-07-16 05:43 | PN ---
Post Progress Note Type of Delivery: Repeat C/S Vital Signs: Vital Signs Temperature 98.4 F 07/16/19 01:04 Pulse Rate 81 07/16/19 01:04 Respiratory Rate 20 07/16/19 05:00 Blood Pressure 98/55 L 07/16/19 01:04 O2 Sat by Pulse Oximetry (%) Uterus: Yes: Fundus below umbilicus Incision: Yes: Dressing dry and intact, Leo intact Abdomen/GI: Yes: Abdomen soft, Tolerating PO Lochia: Yes: Rubra Lochia, amount: Small Extremities: Yes: Calves non-tender Perineum: Yes: Intact Activity: Ambulating Problem List - Problems (1) 39 weeks gestation of Code(s): Z3A.39 - 39 WEEKS GESTATION OF Assessment/Plan 43yo s/p scheduled RLTCS, BTL; POD#1 Routine PP care PO pain control Labs pending D/C [place] today, OOB, ambulate D/C to home POD#4, baby in NICU 2/2 meconium aspiration Tasha Joseph MD
[2019-07-16 08:32] LABS: BASO % 0.4 % (0-2.0); EOS % 2.6 % (0-4.5); HEMATOCRIT 33.4 % (32.4-45.2); HEMOGLOBIN 11.2 GM/dL (10.7-15.3); LYMPH % 14.2 % (8-40); MCH 28.9 pg (25.7-33.7); MCHC 33.6 g/dl (32.0-36.0); MEAN CELL VOLUME 86.2 fl (80-96); MONO % 9.3 % (3.8-10.2); NEUT % 73.5 % (42.8-82.8); PLATELET COUNT 145 K/MM3 (134-434); RBC 3.87 M/mm3 (3.60-5.2); RDW 15.9 % (11.6-15.6); WHITE BLOOD COUNT 8.5 K/mm3 (4.0-10.0)
[2019-07-16] MEDS: FERROUS SO4 325 MG TABLET (FP) PO SCH ×2 (09:26→22:15)
[2019-07-16] MEDS: PRENATAL VITAMINS W/ FOLIC ACID TABLET (FP) PO SCH (09:28)
--- NOTE | 2019-07-16 11:25 | OP ---
DATE OF OPERATION: 07/15/2019 PREOPERATIVE DIAGNOSES: A 39-week , 3 prior sections, gestational diabetes, uncontrolled, desires permanent sterilization. POSTOPERATIVE DIAGNOSES: A 39-week , 3 prior sections, gestational diabetes, uncontrolled, desires permanent sterilization. PROCEDURE: Repeat low transverse section, bilateral tubal ligation. ANESTHESIA: Spinal. ESTIMATED BLOOD LOSS: 700. INTRAVENOUS FLUIDS: Per anesthesia record. URINE OUTPUT: 500 mL of clear urine. SURGEON: Kari Joseph MD KAIWHAKAHAERE: CHYNA Wilkins FINDINGS: Viable male infant, ROT. Meconium. No nuchal. Weight 7 pounds 9 ounces. Apgars 8, 9. Normal tubes and ovaries bilaterally. COMPLICATIONS: None. CONDITION: Stable to recovery room. DESCRIPTION OF PROCEDURE: After the appropriate consents were signed, patient was taken to the operating room. Spinal anesthesia was administered. A sterile Ascencio catheter was inserted in the operating room without difficulty. Abdomen was prepped and draped in a normal sterile fashion. Anesthesia was confirmed. A time-out was performed confirming correct patient and procedure. Pfannenstiel incision was made through the skin, carried through to the underlying layers until what appeared as the fascia was nicked in the midline. This was extended laterally with the scalpel give unable to clearly visualize muscular tissue. From excision through the fascia, entry into the peritoneum was noted. Therefore, the muscle and the fascia were adhesed extensively. There was good visualization of the lower uterine segment with a large uterine window noted and meconium clearly visible through the membranes. Uterus was incised in a low transverse fashion. A thick meconium was noted. Infant's head was delivered without difficulty as were the remaining shoulder and body. Cord was clamped and cut. was handed off to the awaiting NICU staff. The placenta was removed manually. The uterus was cleared of all clot and debris. The uterus was then exteriorized. The hysterotomy was closed in a single imbricating fashion with a 1-0 Vicryl. The patient's left edge of the hysterotomy had to be reinforced to achieve hemostasis. Attention was then paid to the tubal ligation. Patient's right fallopian tube was identified, grasped with a Yanci, carried through to the fimbriated edges, which were noted to be normal aside from the paratubal cyst, which was incised with a scalpel and drained. The fallopian tube was then ligated in a modified Baudilio fashion with a 0 plain. Tubal stumps were removed with the Metzenbaums and then cauterized with the Bovie for hemostasis. Attention was then paid to the left fallopian tube, which was taken down in a similar fashion. Hysterotomy was re-examined and noted to be hemostatic. The uterus was then returned to the abdominal cavity. Gutters were cleared of all clot and debris. The tubal stumps were re-examined and noted to be normal. The fascia was then closed with a 1-0 Vicryl. The subcutaneous tissue was then reapproximated with a 1-0 Vicryl. The skin was closed with nicanor. All sponge, lap, and needle counts were correct x3. She did receive Ancef at the start of the procedure. She was taken from the operating room to the recovery area in stable condition. MD PRIMITIVO DWYER/[id number]
--- NOTE | 2019-07-16 12:18 | PN ---
Progress Note (short form) - Note Progress Note: Anesthesiology Post-op POD#1 s/p C/S under spinal anesthesia. No acute issues. No residual anesthesia. VSS. Pain managed. 43 y.o. woman with stable post-op course. Continue management as per primary team.
[2019-07-16] MEDS ORDERED: BISACODYL 10 MG SUPP.RECT RC PRN (15:23)
[2019-07-16] MEDS: ACETAMINOPHEN 325 MG TABLET (FP) PO PRN ×2 (16:02→22:17)
[2019-07-16] MEDS: IBUPROFEN 600 MG TABLET (FP) PO PRN ×2 (16:02→22:17)
[2019-07-16] MEDS: SIMETHICONE 80 MG TAB.CHEW (FP) PO PRN (22:15)
[2019-07-17] MEDS: oxyCODONE HCL 5 MG TABLET PO PRN ×4 (01:23→18:18)
--- NOTE | 2019-07-17 07:00 | PN ---
Progress Note (short form) - Note Progress Note: pod 2 s/p c/s ,doing well, ambulating, passing gas abdomen soft, no distension, no cva incision dry, clean no calf tenderness no excess vaginal bleeding plan ambulaate , cbc
[2019-07-17] MEDS: SIMETHICONE 80 MG TAB.CHEW (FP) PO PRN ×3 (08:04→18:18)
[2019-07-17] MEDS: ACETAMINOPHEN 325 MG TABLET (FP) PO PRN (08:05)
[2019-07-17] MEDS: PRENATAL VITAMINS W/ FOLIC ACID TABLET (FP) PO SCH (09:38)
[2019-07-17] MEDS: FERROUS SO4 325 MG TABLET (FP) PO SCH ×2 (09:38→22:32)
[2019-07-17] MEDS: IBUPROFEN 600 MG TABLET (FP) PO PRN ×2 (14:23→18:17)
--- NOTE | 2019-07-17 16:49 | PATH ---
Surgical Pathology Report Patient Name: GANGA HOYOS Med. Rec. 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 PLACENTA: THIRD TRIMESTER PLACENTA. TRIVASCULAR CORD. MEMBRANES WITH NO DIAGNOSTIC ABNORMALITIES. B. PORTION OF LEFT FALLOPIAN TUBE, RESECTION: COMPLETE CROSS SECTION OF THE FALLOPIAN TUBE LUMEN IDENTIFIED. C. PORTION OF RIGHT FALLOPIAN TUBE, RESECTION: COMPLETE CROSS SECTION OF THE FALLOPIAN TUBE LUMEN IDENTIFIED. Electronically Signed Jean Solares M.D. Gross Description A. The specimen is received fresh labeled placenta and is a 405 gram, 19.0 x 14.5 x 2.5 cm. placenta with attached membranes and umbilical cord. The attached membranes are delgado, translucent with focal opacities and insert marginally. The umbilical cord measures 49 cm. in length and averages 1 cm. in diameter. The cord inserts centrally. No true knots or strictures are identified. Cut surface of the umbilical cord reveals 3 vessels. The surface is price-blue with minimal fibrin deposition and appropriate caliber vessels. The maternal surface is red-brown with focal defects. Sectioning reveals red-brown, spongy parenchyma. No lesions are identified. [employer] sections are submitted in three cassettes as follows: 1- membrane rolls and umbilical cord; 2-3- full thickness sections of placenta. B. Received in formalin labeled "left portion of fallopian tube," is a 1.8 cm in length portion of fallopian tube. No fimbria are present. The outer surface is delgado-pink and smooth. Sectioning reveals an unremarkable lumen. [employer] sections are submitted in one cassette. C. Received in formalin labeled "right portion of fallopian tube," is a 0.9 cm in length portion of fallopian tube. No fimbria are present. The outer surface is delgado-pink and smooth. Sectioning reveals an unremarkable lumen. Manager Online sections are submitted in one cassette. DL/07/16/2019 [facility]07/16/2019
[2019-07-18] MEDS: SIMETHICONE 80 MG TAB.CHEW (FP) PO PRN ×3 (07:35→18:20)
[2019-07-18] MEDS: IBUPROFEN 600 MG TABLET (FP) PO PRN ×3 (07:35→18:20)
[2019-07-18] MEDS: oxyCODONE HCL 5 MG TABLET PO PRN ×2 (07:36→12:25)
--- NOTE | 2019-07-18 07:43 | PN ---
Post Progress Note - Subjective Subjective: c/o pain scale 7/10 voiding without difficulty Post Day: 3 Type of Delivery: Repeat C/S Vital Signs: Vital Signs Temperature 97.8 F 07/17/19 20:50 Pulse Rate 87 07/17/19 20:50 Respiratory Rate 18 07/17/19 20:50 Blood Pressure 97/66 07/17/19 20:50 O2 Sat by Pulse Oximetry (%) Breast Exam: Yes: Soft, Other (Not BF). No: Engorged Uterus: Yes: Fundus Firm, Fundus below umbilicus. No: Non-tender Incision: Yes: Leo intact. No: Redness, Oozing Abdomen/GI: Yes: Abdomen soft, Tender, Passing flatus (bm done ), Tolerating PO (diet). No: Abdominal Distention Lochia: Yes: Rubra Lochia, amount: Moderate Extremities: Yes: Calves non-tender, Edema (1+/1+) Perineum: Yes: Intact Activity: Ambulating - Labs Labs: CBC WBC 8.5 K/mm3 (4.0-10.0) 07/16/19 07:51 RBC 3.87 M/mm3 (3.60-5.2) 07/16/19 07:51 Hgb 11.2 GM/dL (10.7-15.3) 07/16/19 07:51 Hct 33.4 % (32.4-45.2) 07/16/19 07:51 MCV 86.2 fl (80-96) 07/16/19 07:51 MCH 28.9 pg (25.7-33.7) 07/16/19 07:51 MCHC 33.6 g/dl (32.0-36.0) 07/16/19 07:51 RDW 15.9 % (11.6-15.6) H 07/16/19 07:51 Plt Count 145 K/MM3 (134-434) 07/16/19 07:51 MPV 8.0 fl (7.5-11.1) 07/16/19 07:51 Absolute Neuts (auto) 6.2 K/mm3 (1.5-8.0) 07/16/19 07:51 Neutrophils % 73.5 % (42.8-82.8) 07/16/19 07:51 Lymphocytes % 14.2 % (8-40) D 07/16/19 07:51 Monocytes % 9.3 % (3.8-10.2) 07/16/19 07:51 Eosinophils % 2.6 % (0-4.5) 07/16/19 07:51 Basophils % 0.4 % (0-2.0) 07/16/19 07:51 Nucleated RBC % 0 % (0-0) 07/16/19 07:51 Problem List - Problems (1) Status post section routine follow-up Code(s): Z39.2 - ENCOUNTER FOR ROUTINE FOLLOW-UP; Z98.891 - HISTORY OF UTERINE SCAR FROM PREVIOUS SURGERY Assessment/Plan stable today's cbc pending discharge tomorrow as per pt request
[2019-07-18 10:49] LABS: BASO % 0.4 % (0-2.0); EOS % 6.2 % (0-4.5); HEMATOCRIT 32.8 % (32.4-45.2); LYMPH % 21.1 % (8-40); MCH 28.6 pg (25.7-33.7); MCHC 33.5 g/dl (32.0-36.0); MEAN CELL VOLUME 85.4 fl (80-96); MEAN PLT VOLUME 7.6 fl (7.5-11.1); MONO % 6.6 % (3.8-10.2); NEUT % 65.7 % (42.8-82.8); PLATELET COUNT 188 K/MM3 (134-434); RBC 3.85 M/mm3 (3.60-5.2); RDW 16.1 % (11.6-15.6); WHITE BLOOD COUNT 7.7 K/mm3 (4.0-10.0)
[2019-07-18] MEDS: PRENATAL VITAMINS W/ FOLIC ACID TABLET (FP) PO SCH (12:25)
[2019-07-18] MEDS: FERROUS SO4 325 MG TABLET (FP) PO SCH ×4 (12:25→21:31)
[2019-07-18] MEDS: ACETAMINOPHEN 325 MG TABLET (FP) PO PRN (18:21)
[2019-07-19] MEDS: SIMETHICONE 80 MG TAB.CHEW (FP) PO PRN (09:13)
[2019-07-19] MEDS: FERROUS SO4 325 MG TABLET (FP) PO SCH (09:13)
[2019-07-19] MEDS: PRENATAL VITAMINS W/ FOLIC ACID TABLET (FP) PO SCH (09:13)
[2019-07-19] MEDS: ACETAMINOPHEN 325 MG TABLET (FP) PO PRN (09:14)
[2019-07-19] MEDS: IBUPROFEN 600 MG TABLET (FP) PO PRN (09:14)
--- NOTE | 2019-07-19 09:23 | DS ---
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 No: Distention ...Rectal Exam: Yes: Deferred Renal/: Yes: Other (voiding without difficulty). No: CVA Tenderness - Left, CVA Tenderness - Right ....Post : Yes: Uterus firm, Uterus non-tender, Moderate lochia rubra Breast(s): Yes: WNL (breast milk pumping breast soft bottle & breast feeding) Musculoskeletal: Yes: WNL Extremities: Yes: Delayed Capillary Refill. No: Calf Tenderness Integumentary: Yes: WNL Wound/Incision: Yes: Clean/Dry, Well Approximated, Nicanor Intact, Open to air. 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 - 1 Minute Total Score: 8 5 Minutes Total Score: 9 - Feeding Plan Initial Plan: Elected not to breastfeed exclusively throughout hospitalization Remarks - Remarks Remarks: s/p Repeat c/section btl day #4 stable po course uneventful except incisional pain pt will rtc on 07/21/19 for nicanor removal . discharge today Discharge Summary Problems reviewed: Yes Reason For Visit: Current Active Problems 39 weeks gestation of (Acute) Delivery by (planned) section occurring after 37 completed weeks of gestation but before 39 completed weeks gestation due to (spontaneous) onset of labor, with mention of complication (Acute) Gestational diabetes mellitus (GDM) (Acute) Grand multiparity with current (Acute) Status post section routine follow-up (Acute) Condition: Stable - Instructions Diet, Activity, Other Instructions: Regular Diet Follow up in 7 days to have your nicanor removed Referrals: Kari Joseph MD [Staff Physician] - Disposition: HOME - Home Medications Comprehensive Discharge Medication List: Ambulatory Orders Ibuprofen 600 mg PO Q6H PRN #30 tablet 07/15/19
[2019-07-19 10:57] VITALS: BP 100/60; PULSE 73; TEMP 98.1
== END 2019-07-19 13:30 | disposition home or self-care (01) | DRG 540 ==
LOC: JLDR 11:05 → J3W 16:47
PROVIDERS: ADMIT Obstetrics & Gynecology; ATTEND Obstetrics & Gynecology
PROC: 10D00Z1 Extraction of Products of Conception, Low, Open Approach (ICD-10-PCS; principal; 2019-07-15)
PROC: 0UB70ZZ Excision of Bilateral Fallopian Tubes, Open Approach (ICD-10-PCS; 2019-07-15)
DX: O34.211 Maternal care for low transverse scar from previous cesarean delivery (principal); N85.8 Other specified noninflammatory disorders of uterus; O99.214 Obesity complicating childbirth; E66.9 Obesity, unspecified; O24.429 Gestational diabetes mellitus in childbirth, unspecified control; Z3A.39 39 weeks gestation of pregnancy; Z30.2 Encounter for sterilization; Z37.0 Single live birth
CPT/HCPCS: 36415; 82962; 85025; 88302-TC; 88307-TC

== ENCOUNTER 2020-03-07 18:44 | Emergency (ER) | payer OTHER ==
--- NOTE | 2020-03-07 18:59 | PDOC ---
Rapid Medical Evaluation Time Seen by Provider: 03/07/20 18:56 Medical Evaluation: Allergies Allergy/AdvReac Type Severity Reaction Status Date / Time No Known Allergies Allergy Verified 03/07/20 18:56 03/07/20 18:57 Pt states she swallowed a fishbone just prior to arrival. She states she then ate a plantain. She does not feel any obstruction at this time Exam: airway open cleared and maintained. No stridor Orders: x-ray Pt to proceed to the ER for further evaluation Discharge Disposition - Diagnosis Foreign body, swallowed - Referrals - Patient Instructions - Post Discharge Activity
[2020-03-07 19:00] VITALS: BP 99/60; PULSE 75; TEMP 98.3; BMI 34.0
--- NOTE | 2020-03-07 20:04 | PDOC ---
History of Present Illness - General Chief Complaint: Foreign Body (FB) Stated Complaint: BONE STUCK IN THROAT Time Seen by Provider: 03/07/20 18:56 History Source: Patient Exam Limitations: Clinical Condition - History of Present Illness Initial Comments: 03/07/20 19:59 Patient with no significant past medical history present for evaluation of feeling of pinching to the back of the throat perform a fishbone while eating salmon 2 hours ago. Patient reported she had a piece of bone in the fish and did not see it and when she is swallowed, felt pain to the back of the throat. Patient reported eating planting after incident which seemed to clear out the fishbone. Patient also reported over month history of intermittent right elbow and upper back pain over scapular without trauma or injury. 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 Patient talking in full sentences and reported no throat pain at this time. Denies difficulty swallowing. Denies any other symptoms Is this a multiple visit Asthma Patient?: No Timing/Duration: resolved prior to arrival Past History - Medical History Allergies/Adverse Reactions: Allergies Allergy/AdvReac Type Severity Reaction Status Date / Time No Known Allergies Allergy Verified 03/07/20 18:56 Home Medications: Ambulatory Orders Ibuprofen 600 mg PO Q6H PRN #30 tablet 07/15/19 Meloxicam 15 mg PO DAILY PRN #10 tablet 03/07/20 Asthma: No Cancer: No Cardiac Disorders: No COPD: No DVT: No Diabetes: Yes HTN: No Seizures: No Thyroid Disease: No - Reproductive History Is Patient Now?: No (#): 7 Para: 3 Cervical CA: No Dysfunctional Uterine Bleeding: No Ectopic : No Endometrial CA: No Polycystic Ovaries: No Therapeutic (s) & number: Yes Tubal Ligation: No Spontaneous : 0 - Immunization History Immunization Up to Date: Yes - Psycho-Social/Smoking History Smoking Status: No Smoking History: Never smoked Have you smoked in the past 12 months: No Number of Cigarettes Smoked Daily: 0 - Substance Abuse Hx (Audit-C & DAST Scrn) How often the patient has a drink containing alcohol: Never Score: In Men: 4 or > Positive; In Women: 3 or > Positive: 0 Screen Result (Pos requires Nsg. Audit-10AR): Negative In the last yr the pt used illegal drug/Rx for NonMed reason: No Score: Yes response is considered Positive: 0 Screen Result (Positive result requires Nsg. DAST-10): Negative Review of Systems - Review of Systems Able to Perform ROS?: Yes Is the patient limited [place] proficient: No Constitutional: No: Chills, Fever HEENTM: No: Symptoms Reported, See HPI, Eye Pain, Blurred Vision, Tearing, Recent change in vision, Double Vision, Cataracts, Ear Pain, Ocular Prothesis, Ear Discharge, Nose Pain, Nose Congestion, Tinnitus, Nose Bleeding, Hearing Loss, Throat Pain, Throat Swelling, Mouth Pain, Dental Problems, Difficulty Swallowing, Mouth Swelling, Other Respiratory: No: Symptoms reported, See HPI, Cough, Orthopnea, Shortness of Breath, SOB with Exertion, SOB at Rest, Stridor, Wheezing, Productive cough, Hemoptysis, Other Cardiac (ROS): No: Symptoms Reported ABD/GI: No: Symptoms Reported, Nausea, Vomiting Musculoskeletal: Yes: Symptoms Reported, See HPI, Joint Pain (intermittent right elbow pain), Muscle Pain (intermittent posterior upper back pain) Integumentary: No: Symptoms Reported, See HPI Neurological: No: Symptoms reported, Numbness, Tingling All Other Systems: Reviewed and Negative *Physical Exam - Vital Signs Last Vital Signs Temp Pulse Resp BP Pulse Ox 98.3 F 75 18 99/60 100 03/07/20 18:56 03/07/20 18:56 03/07/20 18:56 03/07/20 18:56 03/07/20 18:56 - Physical Exam 03/07/20 20:02 GENERAL: Well developed, well nourished. Awake and alert. No acute distress. HEENT: Normocephalic, atraumatic. No conjunctival pallor. Sclera are non- icteric. Moist mucous membranes. Oropharynx is clear. NECK: Supple. Full ROM. PULMONARY: No evidence of respiratory distress. MUSCULOSKELETAL Normal range of motion at all joints. Mild subjective tenderness over scapular of posterior right shoulder. Full range of motion of right shoulder and upper arm. 5 out of 5 strength to right upper extremity. SKIN: Warm and dry. Normal capillary refill. No cyanosis NEUROLOGICAL: Alert, awake, appropriate. Gait is normal without ataxia. PSYCHIATRIC: Cooperative. Good eye contact. Appropriate mood General Appearance: Yes: Nourished, Appropriately Dressed. No: Apparent Distress Medical Decision Making - Medical Decision Making 03/07/20 20:01 Patient with no significant past medical history present for evaluation of feeling of pinching to the back of the throat perform a fishbone while eating salmon 2 hours ago. Patient reported she had a piece of bone in the fish and did not see it and when she is swallowed, felt pain to the back of the throat. Patient reported eating planting after incident which seemed to clear out the fishbone. Patient also reported over month history of intermittent right elbow and upper back pain over scapular without trauma or injury. 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 Patient talking in full sentences and reported no throat pain at this time. Denies difficulty swallowing. Denies any other symptoms Clinical exam unremarkable. No tenderness to right elbow. Mild subjective tenderness to scapula of left posterior shoulder. Patient talking in full sentences no acute distress. Oropharynx patent. X-ray of neck shows hardware in cervical spine from previous surgery otherwise with no acute findings. Reassurance given to patient. Patient stable for discharge meloxicam PRN for back and elbow pain with orthopedics and PCP follow-up Discharge - Discharge Information Problems reviewed: Yes Clinical Impression/Diagnosis: Upper back pain on right side Foreign body, swallowed Qualifiers: Encounter type: initial encounter Qualified Code(s): T18.9XXA - Foreign body of alimentary tract, part unspecified, initial encounter Condition: Stable Disposition: HOME - Admission No - Additional Discharge Information Prescriptions: Meloxicam 15 mg PO DAILY PRN #10 tablet PRN Reason: pain - Follow up/Referral Referrals: Salvatore Sanders DO [Staff Physician] - - Patient Discharge Instructions Additional Instructions: X-ray of your neck is normal and shows no bone in neck or your throat. Fish bone should come out by itself so there is no need to worry at this time. Take prescribed medication as needed for elbow and back pain as needed. Follow-up with primary care. Follow-up referred to orthopedics if elbow and back pain persist - Post Discharge Activity
--- OUTSIDE RECORDS SUMMARY | 2020-03-07 21:00 | XMS ---
:1975 Author Organization [facility] Care Team Providers Name Role Phone ED STAFF PHYSICIANKELVIN Unavailable Unavailable Re-disclosure Warning The records that you are about to access may contain information from federally- assisted alcohol or drug abuse programs. If such information is present, then the following federally mandated warning applies: This information has been disclosed to you from records protected by federal confidentiality rules (42 CFR part 2). The federal rules prohibit you from making any further disclosure of this information unless further disclosure is expressly permitted by the written consent of the person to whom it pertains or as otherwise permitted by 42 CFR part 2. A general authorization for the release of medical or other information is NOT sufficient for this purpose. The Federal rules restrict any use of the information to criminally investigate or prosecute any alcohol or drug abuse patient.The records that you are about to access may contain highly sensitive health information, the redisclosure of which is protected by Article 27-F of the [facility] Public Health law. If you continue you may haveaccess to information: Regarding HIV / AIDS; Provided by facilities licensed or operated by the [facility] Office of Mental Health; or Provided by the [facility] Office for People With Developmental Disabilities. If such information is present, then the following [facility] mandated warning applies: This information has been disclosed to you from confidential records which are protected by state law. State law prohibits you from making any further disclosure of this information without the specific written consent of the person to whom it pertains, or as otherwise permitted by law. Any unauthorized further disclosure in violation of state law may result in a fine or chcf sentence or both. A general authorization for the release of medical or other information is NOT sufficient authorization for further disclosure. Allergies and Adverse Reactions Type Description Substance Reaction Status Data Source(s ) Adverse Reaction N.K.D.A. N.K.D.A. Info Not eCW1 (Sa int Available [facility]) No Known No Known No Known eCW3 ([facility] Allergies Allergies Allergies [facility]) No Known No Known No Known eCW3 ([facility] Allergies Allergies Allergies [facility]) No Known No Known No Known eCW3 ([facility] Allergies Allergies Allergies [facility]) No Known No Known No Known eCW3 ([facility] Allergies Allergies Allergies [facility]) No Known No Known No Known eCW1 ([facility] Allergies Allergies Allergies [facility]) No Known No Known No Known eCW3 ([facility] Allergies Allergies Allergies [facility]) No Known No Known No Known eCW3 ([facility] Allergies Allergies Allergies [facility]) No Known No Known No Known eCW3 ([facility] Allergies Allergies Allergies [facility]) No Information No Information No Information eC W1 ([facility]) No Information No Information No Information eC W1 ([facility]) Propensity to Propensity to No Known eCW1 (Sa int adverse reactions adverse reactions allergies [facility] (disorder) (disorder) Medical [facility]) Encounters Encounter Providers Location Date Indications Data Source(s ) Outpatient [address] 12/08/2019 eCW1 ([facility] 12:00:00 [facility] AM EDT Practice ) 69 [facility] [address] 07/22/2019 eCW1 ([facility] 12:00:00 [facility] AM EST Practice ) 69 [facility] [address] 07/16/2019 eCW1 ([facility] 12:00:00 [facility] AM EST Practice ) Outpatient [facility] 03/20/2019 eCW3 ([facility] 12:00:00 [facility] A28 AM EDT - Care) 03/20/2019 12:00:00 AM EDT (EOB) Established [facility] 02/11/2019 eCW 3 ([facility] 12:00:00 [facility] A28 AM EDT - Care) 02/11/2019 12:00:00 AM EDT A28-New Therapy, [facility] 01/09/2019 eCW3 ([facility] 12:00:00 [facility] A28 AM EDT - Care) 01/09/2019 12:00:00 AM EDT Est. Patient [facility] 01/09/2019 eCW3 ([facility] 12:00:00 [facility] Medical Nutrition A28 AM EDT - Care) 01/09/2019 12:00:00 AM EDT (TEL) [address] 01/07/2019 eCW1 ([facility] 12:00:00 [facility] AM EDT Practice PC) Outpatient [facility] 12/26/2018 eCW3 ([facility] 12:00:00 [facility] A28 AM EDT - Care) 12/26/2018 12:00:00 AM EDT Outpatient [facility] 12/23/2018 eCW3 ([facility] 12:00:00 [facility] A28 AM EDT - Care) 12/23/2018 12:00:00 AM EDT Outpatient [facility] 12/01/2018 eCW3 ([facility] 12:00:00 [facility] A28 AM EDT - Care) 12/01/2018 12:00:00 AM EDT Emergency Attender: KELVIN Doe 08/20/2018 [facility] 04:10:00 [facility] PHYSICIANAdmitte PM EST r: KELVIN ED STAFF PHYSICIAN [address] [place] [address] [address] 08/20/2018 eCW1 ([facility] 03:30:00 [facility] PM EST - Practice PC) 08/20/2018 03:30:00 PM EST [address] [address] [address] 12/03/2017 eCW1 ([facility] 12:15:00 [facility] PM EDT - Practice PC) 12/03/2017 12:15:00 PM EDT [address] 10/30/2017 eCW1 ([facility] 12:00:00 [facility] AM EDT Practice PC) [address] 10/24/2017 [facility] [address] 10/16/2017 eCW1 ([facility] 12:00:00 [facility] AM EDT Practice PC) Immunizations Vaccine Date Status Description Data Source(s) No Known Immunizations completed eCW1 ([facility]) No Known Immunizations completed eCW1 ([facility]) Medications Medication Brand Start Product Dose Route Administrative Pharmacy [facility] Indications Reaction Description Data Name Date Form Instructions Instructions Source(s) ferrous Ferrou 1.0 suspend Ferrous eC W1 sulfate 325 s 2018 {tabl ed Sulfate 325 (Saint MG Oral Sulfat 12:00: et} (65 Fe) MG Anali sephs Tablet e 325 00 AM Medical Ferrous (65 EDT Practice Sulfate 325 Fe) MG ) (65 Fe) MG Ferrous 12/03/ Tablet Orally 325 (65 Fe) MG complet 1 tablet eCW1 Sulfate 2018 Orally Once a ed (Sa int 12:00: day [facility] 00 AM Medical EDT Practice PC) Vitamin D 10/24/ Capsule Orally 18213 UNIT complet 1 capsule eCW1 (Ergocalcif 2018 Orally weekly ed ([facility] juan) 12:00: [facility] 00 AM Medical EDT Practice PC) Vitamin D UNK 1.0 active Vitamin D e CW1 (Ergocalcif 2018 {caps (Ergocalcife ([facility]) 62237 12:00: ule} rol) 16476 [facility] UNIT 00 AM UNIT Medical EDT Practice PC) UNK 07/12/ active eCW 3 Vitamins 2009 Vitamins ([facility] (Dis) 12:00: (Dis) [facility] 00 AM Health EST Care) UNK 07/12/ active eCW 3 Vitamins 2009 Vitamins ([facility] (Dis) 12:00: (Dis) [facility] 00 AM Health EST Care) UNK 07/12/ active eCW 3 Vitamins 2009 Vitamins ([facility] (Dis) 12:00: (Dis) [facility] 00 AM Health EST Care) UNK 07/12/ active eCW 3 Vitamins 2010 Vitamins ([facility] (Dis) 12:00: (Dis) [facility] 00 AM Health EST Care) UNK 07/12/ active eCW 3 Vitamins 2010 Vitamins ([facility] (Dis) 12:00: (Dis) [facility] 00 AM Health EST Care) UNK 07/12/ active eCW 3 Vitamins 2009 Vitamins ([facility] (Dis) 12:00: (Dis) [facility] 00 AM Health EST Care) UNK 07/12/ active eCW 3 Vitamins 2010 Vitamins ([facility] (Dis) 12:00: (Dis) [facility] 00 AM Health EST Care) Ibuprofen Ibupro active Ibuprofen e CW1 800 MG Oral fen 800 MG (Saint Tablet 800 MG [facility]) Unknown complet eCW1 Medications ed ([facility]) Unknown complet eCW1 Medications ed ([facility]) Insurance Providers Payer name Policy type Policy ID Covered Covered democrat's Policy P vanessa / Coverage democrat ID relationship to Arce Inf ormation type arce MAGALIE [id number] SP [id number] 100 HEALTH NON [facility] MEDICAID [id number] SP [id number] MAGALIE W [id number] Problems, Conditions, and Diagnoses Code Display Name Description Problem Type Effective Dates Data Source(s) E66.01 [id number] Morbid obesity Problem 12/08/2019 eCW1 ([place] t 12:00:00 AM EDT [facility]) F43.20 Adjustment Adjustment Problem 01/09/2019 eCW3 ([facility] disorder, disorder, 12:00:00 AM EDT [facility] unspecified type unspecified type Ca re) E55.9 [id number] Vitamin D Problem 10/24/2017 eCW1 ([facility] deficiency 12:00:00 AM EDT [facility]) E55.9 [id number] Vitamin D Problem 10/24/2017 eCW1 ([facility] deficiency 12:00:00 AM EDT [facility]) Z00.00 Encounter for PE (physical Diagnosis eCW1 (Kai nt general adult exam), [facility]) examination without abnormal findings E55.9 Vitamin D Vitamin D Problem eCW1 ([facility] deficiency, deficiency [facility] unspecified Practice PC) D64.9 Anemia, Anemia, Diagnosis eCW1 ([facility] unspecified unspecified type [facility]) F32.9 Major depressive Depression, Diagnosis eCW1 (S aint disorder, single unspecified [facility] Medical episode, depression type Practice PC) unspecified A64 Unspecified STD (female) Diagnosis eCW1 ([facility] sexually [facility] transmitted Practice PC) disease A64 Unspecified STD (female) Diagnosis eCW1 ([facility] sexually [facility] transmitted [facility]) disease N83.202 Unspecified Cyst of left Diagnosis eCW1 ([facility] ovarian cyst, ovary [facility] Med ical left side Practice PC) E55.9 Vitamin D Vitamin D Problem eCW1 ([facility] deficiency, deficiency [facility] unspecified Practice PC) D64.9 Anemia, Anemia, Diagnosis eCW1 ([facility] unspecified unspecified type [facility]) 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, Dermoid cyst Diagnosis eCW1 ( [facility] unspecified site [facility]) 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 Diagnosis eCW1 ([facility] diseases of dilated [facility] Medic al pancreas Practice PC) F32.9 Major depressive MAJOR DEPRESSIVE Diagnosis 08/20/2018 Sa int [facility]ann disorder, single DISORDER, SINGLE 04:10:00 PM [facility] episode, EPISODE, unspecified UNSPECIFIED F41.9 Anxiety disorder, ANXIETY DISORDER, Diagnosis 08/20/2018 [facility] unspecified UNSPECIFIED 04:10:00 PM [facility] Surgeries/Procedures Procedure Description Date Indications Data Source(s) COLLECTION VENOUS 08/20/2018 eCW1 ([place] t BLOOD VENIPUNCTURE 12:00:00 AM [facility]) HANDLG&/OR CONVEY OF 08/20/2018 eCW1 (S aint SPEC FOR TR OFFICE TO 12:00:00 AM [facility] Medical LAB [facility]) PERIODIC PREVENTIVE 08/20/2018 eCW1 (Sa int MED EST PATIENT 12:00:00 AM [facility] Medi jordan 40-64YRS EST [facility]) OFFICE OUTPATIENT 12/03/2017 eCW1 ([facility] t VISIT 25 MINUTES 12:00:00 AM [facility] No Known procedures No Known procedures e CW1 ([facility]) No Known procedures No Known procedures e CW1 ([facility]) Social History Code Duration Value Status Description Data Source(s ) Smoking 12/08/2019 Never Smoker completed Never Smoker eCW1 ([facility] t 12:00:00 AM [facility]) Smoking 07/21/2019 Never Smoker completed Never Smoker eCW3 ([facility] 12:[facility]:00 AM EST [facility]) Smoking 07/21/2019 Never Smoker completed Never Smoker eCW3 ([facility] 12:00:00 AM EST [facility]) Smoking 07/21/2019 Never Smoker completed Never Smoker eCW3 ([facility] 12:00:00 AM EST [facility]) Smoking 07/21/2019 Never Smoker completed Never Smoker eCW3 ([facility] 12:00:00 AM [facility]) Smoking 07/21/2019 Never Smoker completed Never Smoker eCW3 ([facility] 12:00:00 AM EST [facility]) Smoking 07/21/2019 Never Smoker completed Never Smoker eCW3 ([facility] 12:00:00 AM EST [facility]) Smoking 07/21/2019 Never Smoker completed Never Smoker eCW3 ([facility] 12:00:00 AM EST [facility]) Smoking 08/20/2018 Occasional Smoker completed Occasional Smoker [facility] 04:32:00 PM EST Medical C enter Smoking 08/20/2018 Occasional Smoker completed Occasional Smoker [facility] 04:00:00 PM EST Medical C enter Smoking 08/20/2018 Occasional Smoker completed Occasional Smoker [facility] 03:14:00 PM EST Medical C enter Never Smoker completed Never Smoker eCW3 ([facility]) Never Smoker completed Never Smoker eCW3 ([facility]) Never Smoker completed Never Smoker eCW3 ([facility]) Never Smoker completed Never Smoker eCW3 ([facility]) Never Smoker completed Never Smoker eCW1 ([facility]) Never Smoker completed Never Smoker eCW3 ([facility]) Never Smoker completed Never Smoker eCW3 ([facility]) Never Smoker completed Never Smoker eCW3 ([facility]) Smoking Unknown if ever completed Unknown if ever eCW1 ([facility] smoked smoked [facility]) Smoking Unknown if ever completed Unknown if ever eCW1 ([facility] smoked smoked [facility]) Vital Signs ID Date Data Source UNK Name Value Range Interpretation Code Description Data Source(s) Diastolic blood 82 mm[Hg] 82 mm[Hg] eCW1 ([facility] pressure [facility]) Systolic blood 113 mm[Hg] 113 mm[Hg] eCW1 ([facility] pressure [facility]) Body temperature 98.5 [degF] 98.5 [degF] eCW1 ( [place]) Respiratory rate 18 /min 18 /min eCW1 ( int [facility]) Heart rate 87 /min 87 /min eCW1 ([place] [facility]) Body mass index 31.46 kg/m2 31.46 kg/m2 eCW1 (S aint (BMI) [Ratio] [facility] ica Practice PC) Body weight 172 [lb_av] 172 [lb_av] eCW1 ([place] [facility]) Body height [in_i] [facility] Diastolic blood 54 mm[Hg] 54 mm[Hg] eCW3 ([facility]) Systolic blood 86 mm[Hg] 86 mm[Hg] eCW3 ([facility]) Body temperature 98.4 [degF] 98.4 [degF] eCW3 ( [facility]) Heart rate 20 /min 20 /min eCW3 ([facility]) Body mass index 31.365 kg/m2 31.365 kg/m2 eCW3 ([place] (BMI) [Ratio] [facility]) Body weight 166 [lb_av] 166 [lb_av] eCW3 ([facility]) Body height 61 [in_i] 61 [in_i] eCW3 ([facility]) Diastolic blood 60 mm[Hg] 60 mm[Hg] eCW3 ([facility]) Systolic blood 100 mm[Hg] 100 mm[Hg] eCW3 ([facility]) Body temperature 98.0 [degF] 98.0 [degF] eCW3 ( [facility]) Body mass index 30.232 kg/m2 30.232 kg/m2 eCW3 ([place] (BMI) [Ratio] [facility]) Body weight 160 [lb_av] 160 [lb_av] eCW3 ([facility]) Body height 61 [in_i] 61 [in_i] eCW3 ([facility]) Body mass index 30.23 kg/m2 30.23 kg/m2 eCW3 ([facility] (BMI) [Ratio] [facility]) Body weight 160 [lb_av] 160 [lb_av] eCW3 ([facility]) Body height 61 [in_i] 61 [in_i] eCW3 ([facility]) Diastolic blood 66 mm[Hg] 66 mm[Hg] eCW3 ([facility]) Systolic blood 96 mm[Hg] 96 mm[Hg] eCW3 ([facility]) Body temperature 98.2 [degF] 98.2 [degF] eCW3 ( [facility]) Heart rate 20 /min 20 /min eCW3 ([facility]) Body mass index 30.232 kg/m2 30.232 kg/m2 eCW3 ([place] (BMI) [Ratio] [facility]) Body weight 160 [lb_av] 160 [lb_av] eCW3 ([facility]) Body height 61 [in_i] 61 [in_i] eCW3 ([facility]) Systolic blood 113 mm[Hg] 113 mm[Hg] [facility] pressure Medical Center Diastolic blood 71 mm[Hg] 71 mm[Hg] [facility] pressure Medical Center Heart rate 90 /min 90 /min [facility] Oxygen saturation 98 % 98 % [facility] Yelena serra in Arterial blood Medical Center by Pulse oximetry Respiratory rate 17 /min 17 /min [facility] Body temperature 36.507647 [id number] [facility] Body weight 162 [lb_av] 162 [lb_av] eCW1 ([facility]) Heart rate 83 /min 83 /min eCW1 ([facility]) Diastolic blood 92 mm[Hg] 92 mm[Hg] eCW1 ([facility] nt pressure [facility]) Systolic blood 118 mm[Hg] 118 mm[Hg] eCW1 ([place] pressure [facility]) Body temperature 97.7 [degF] 97.7 [degF] eCW1 ( [facility] Medica l Practice PC) Respiratory rate 18 /min 18 /min eCW1 (Sa int [facility]) Body mass index 30.1 kg/m2 30.1 kg/m2 [facility] (BMI) [Ratio] Medical [address] Systolic blood 111 mm[Hg] 111 mm[Hg] [facility] pressure Medical Center Diastolic blood 78 mm[Hg] 78 mm[Hg] [facility] Body height 152.892376 152.008130 cm [facility] Heart rate 76 /min 76 /min [facility] Oxygen saturation 97 % 97 % [facility] na in Arterial blood [facility] Center by Pulse oximetry Respiratory rate 18 /min 18 /min [facility] Body temperature 36.136940 [id number] [facility] Body weight 70.183647 kg 70.785373 kg [facility] Measured [facility] Body weight 158 [lb_av] 158 [lb_av] [facility]CW[facility] Respiratory rate 16 /min 16 /min eCW1 ( int [facility]) Heart rate 74 /min 74 /min eCW1 ([facility]) Diastolic blood 60 mm[Hg] 60 mm[Hg] eCW1 ([facility] pressure [facility]) Systolic blood 90 mm[Hg] 90 mm[Hg] eCW1 ([facility] [facility] pressure [facility])
== END 2020-03-07 20:29 | disposition home or self-care (01) ==
LOC: JERFT 18:44
DX: T18.9XXA Foreign body of alimentary tract, part unspecified, initial encounter (principal)
CPT/HCPCS: 70360-TC-FY; 99283-25

== ENCOUNTER 2020-07-28 20:45 | Emergency (ER) | payer OTHER ==
[2020-07-28 20:52] VITALS: BP 103/62; PULSE 74; TEMP 98; BMI 30.4
[2020-07-28] MEDS ORDERED: ACETAMINOPHEN WITH CODEINE 300MG/30MG TABLET PO ONE (21:00)
[2020-07-28] MEDS ORDERED: ACETAMINOPHEN WITH CODEINE 300MG/30MG TABLET ONE (21:02)
== END 2020-07-28 23:33 | disposition home or self-care (01) ==
LOC: FER 20:45
DX: M54.5 Low back pain (principal)
CPT/HCPCS: 72125-TC; 72128-TC; 72131-TC; 72192-TC; 99285-25

== ENCOUNTER 2021-08-26 10:57 | Emergency (ER) | payer OTHER ==
[2021-08-26 11:10] VITALS: BP 119/87; PULSE 72; TEMP 97.5; BMI 31.8
[2021-08-26] MEDS ORDERED: KETOROLAC TROMETHAMINE 60 MG/2 ML VIAL IM ONE (11:40)
[2021-08-26] MEDS ORDERED: KETOROLAC TROMETHAMINE 60 MG/2 ML VIAL ONE (11:42)
== END 2021-08-26 12:10 | disposition home or self-care (01) ==
LOC: JERFT 10:57
PROC: 3E023GC Introduction of Other Therapeutic Substance into Muscle, Percutaneous Approach (ICD-10-PCS; principal; 2021-08-26)
DX: S46.912A Strain of unspecified muscle, fascia and tendon at shoulder and upper arm level, left arm, initial encounter (principal); M54.50 Low back pain, unspecified; V49.40XA Driver injured in collision with unspecified motor vehicles in traffic accident, initial encounter
CPT/HCPCS: 99284-25

== ENCOUNTER 2022-10-13 00:01 | Emergency (ER) | payer OTHER ==
[2022-10-13 00:21] VITALS: TEMP 98.8; BMI 33.5
[2022-10-13] MEDS ORDERED: ACETAMINOPHEN 1000 MG/100 ML BAG IVPB ONE (00:53)
[2022-10-13] MEDS ORDERED: SODIUM CHLORIDE 0.9% 500 ML INFUS.BAG IV ONE (01:48)
[2022-10-13] MEDS ORDERED: ACETAMINOPHEN INJECTION 100 ML IVPB ONE (02:53)
[2022-10-13 03:47] LABS: BASO % 0.4 % (0-2.0); EOS % 8.2 % (0-4.5); HEMATOCRIT 37.2 % (32.4-45.2); HEMOGLOBIN 12.5 GM/dL (10.7-15.3); LYMPH % 35.5 % (8-40); MCH 27.7 pg (25.7-33.7); MCHC 33.6 g/dl (32.0-36.0); MEAN CELL VOLUME 82.6 fl (80-96); MEAN PLT VOLUME 8.1 fl (7.5-11.1); MONO % 8.1 % (3.8-10.2); NEUT % 47.8 % (42.8-82.8); PLATELET COUNT 243 10^3/uL (134-434); RDW 14.9 % (11.6-15.6); WHITE BLOOD COUNT 9.8 K/mm3 (4.0-10.0)
[2022-10-13 04:07] LABS: CHLORIDE 108 mmol/L (98-107); SODIUM 140 mmol/L (136-145)
[2022-10-13 04:10] LABS: ALBUMIN 3.4 g/dl (3.4-5.0); ANION GAP 4 MMOL/L (8-16); BLOOD UREA NITROGEN 16.2 mg/dL (7-18); CO2 28 mmol/L (21-32); GLUCOSE,RANDOM 113 mg/dL (74-106)
[2022-10-13 04:11] LABS: INR 0.94 (0.83-1.09); PROTHROMBIN TIME (PATIENT) 10.9 SEC (9.7-13.0)
[2022-10-13 04:13] LABS: SGOT/AST 24 U/L (15-37); SGPT/ALT 22 U/L (13-61)
[2022-10-13 04:14] LABS: ACTIVATED PTT 26.6 SECONDS (25.2-36.5)
[2022-10-13 04:15] LABS: BILIRUBIN,TOTAL 0.2 mg/dL (0.2-1); TOT PROT 7.4 g/dl (6.4-8.2)
[2022-10-13 04:16] LABS: ALK PHOS 86 U/L (45-117)
[2022-10-13 05:21] VITALS: BP 115/62; PULSE 80; RESP 16
[2022-10-13 06:08] LABS: EPI CELLS 23 /uL (0-25.1); HYALINE CASTS 0 /uL (0-3.1); PH,URINE 5.5 (5.0-8.0); URINE APPEARANCE CLEAR; URINE BACTERIA 111 /uL (0-1359); URINE BILIRUBIN NEGATIVE (NEGATIVE); URINE COLOR YELLOW; URINE GLUCOSE (UA) NEGATIVE (NEGATIVE); URINE KETONE NEGATIVE (NEGATIVE); URINE LEUK ESTERASE NEGATIVE (NEGATIVE); URINE NITRITE NEGATIVE (NEGATIVE); URINE PROTEIN NEGATIVE (NEGATIVE); URINE RBC 43 /uL (0-23.9); URINE UROBILINOGEN 0.2 mg/dL (0.2-1.0); URINE WBC 2 /uL (0-25.8)
[2022-10-13 06:13] LABS: COCAINE, UR NEGATIVE (NEGATIVE); METHADONE, UR NEGATIVE (NEGATIVE); OPIATES, URI NEGATIVE (NEGATIVE); PHENCYCLIDINE,URINE NEGATIVE (NEGATIVE); URINE AMPHETAMINES NEGATIVE (NEGATIVE); URINE BARBITURATES NEGATIVE (NEGATIVE); URINE BENZODIAZEPINES NEGATIVE (NEGATIVE)
== END 2022-10-13 05:21 | disposition home or self-care (01) ==
LOC: JER 00:01
PROC: 3E033NZ Introduction of Analgesics, Hypnotics, Sedatives into Peripheral Vein, Percutaneous Approach (ICD-10-PCS; principal; 2022-10-13)
DX: S80.02XA Contusion of left knee, initial encounter (principal); R42 Dizziness and giddiness; M54.50 Low back pain, unspecified; W01.0XXA Fall on same level from slipping, tripping and stumbling without subsequent striking against object, initial encounter
CPT/HCPCS: 36415; 70450-TC; 71045-TC-FY; 72125-TC; 73070-TC-LT-FY; 73560-TC-LT-FY; 73610-TC-LT-FY; 80053; 80307; 81003; 82962; 84436; 84443; 84702; 85025; 85610; 85730; 86850; 86900; 86901; 87086; 99285-25

== ENCOUNTER 2023-06-21 11:32 | Emergency (ER) | payer OTHER ==
[2023-06-21 11:48] VITALS: BP 123/78; PULSE 76; RESP 17; TEMP 98.3; BMI 32.2
[2023-06-21] MEDS ORDERED: ACETAMINOPHEN 500 MG TABLET (FP) PO ONE (12:50)
[2023-06-21] MEDS ORDERED: LIDOCAINE 5% TOPICAL PATCH TP ONE ×2 (12:51)
[2023-06-21] MEDS ORDERED: KETOROLAC TROMETHAMINE 30 MG/1 ML VIAL IM ONE (12:51)
[2023-06-21] MEDS ORDERED: LIDOCAINE 4% PATCH TP ONE (13:01)
[2023-06-21] MEDS ORDERED: KETOROLAC TROMETHAMINE 30 MG/1 ML VIAL ONE (13:01)
[2023-06-21] MEDS ORDERED: ACETAMINOPHEN 500 MG TABLET (FP) ONE (13:02)
[2023-06-21] MEDS ORDERED: LIDOCAINE PATCH REMOVAL MC ONE (22:00)
[2023-06-21] MEDS ORDERED: LIDOCAINE PATCH REMOVAL MC SCH (22:00)
== END 2023-06-21 14:48 | disposition home or self-care (01) ==
LOC: JERFT 11:32
PROC: 3E0233Z Introduction of Anti-inflammatory into Muscle, Percutaneous Approach (ICD-10-PCS; principal; 2023-06-21)
DX: M25.561 Pain in right knee (principal); M79.641 Pain in right hand; M54.9 Dorsalgia, unspecified; W18.39XA Other fall on same level, initial encounter
CPT/HCPCS: 73110-TC-LT-FY; 73110-TC-RT-FY; 73130-TC-LT-FY; 73130-TC-RT-FY; 73562-TC-LT-FY; 73562-TC-RT-FY; 99284-25

== ENCOUNTER 2023-07-06 05:21 | Emergency (ER) | payer OTHER ==
[2023-07-06 05:38] VITALS: BP 110/68; PULSE 70; RESP 18; TEMP 98.6; BMI 30.9
[2023-07-06] MEDS ORDERED: MAG HYDROX/AL HYDROX/SIMETH 30 ML UNIT-DOSE CUP PO ONE (05:44)
[2023-07-06] MEDS ORDERED: FAMOTIDINE 20 MG/50 ML IVPB 20 MG/50 ML MG IVPB ONE (05:44)
[2023-07-06] MEDS ORDERED: IBUPROFEN 400 MG TABLET (FP) PO ONE ×2 (05:44→05:51)
[2023-07-06] MEDS ORDERED: ONDANSETRON *ODT* 4 MG TABLET SL ONE (05:45)
[2023-07-06] MEDS ORDERED: ONDANSETRON *ODT* 4 MG TABLET ONE (05:50)
[2023-07-06] MEDS ORDERED: MAG HYDROX/AL HYDROX/SIMETH 30 ML UNIT-DOSE CUP ONE (05:51)
[2023-07-06] MEDS ORDERED: FAMOTIDINE 20 MG TABLET PO ONE (05:51)
[2023-07-06] MEDS ORDERED: FAMOTIDINE 20 MG TABLET ONE (05:52)
== END 2023-07-06 07:47 | disposition home or self-care (01) ==
LOC: JER 05:21
DX: R05.9 Cough, unspecified (principal); R11.2 Nausea with vomiting, unspecified; R53.81 Other malaise; M79.10 Myalgia, unspecified site; J10.1 Influenza due to other identified influenza virus with other respiratory manifestations; Z20.822 Contact with and (suspected) exposure to COVID-19
CPT/HCPCS: 0241U-QW; 99283-25; Q0162

== ENCOUNTER 2023-11-17 13:57 | Emergency (ER) | payer OTHER ==
[2023-11-17 14:08] VITALS: BP 111/79; PULSE 76; RESP 18; TEMP 98; BMI 28.8
[2023-11-17] MEDS ORDERED: DIPHTH,PERTUSS(ACELL),TET 0.5 ML DISP.SYRIN IM ONE (14:46)
[2023-11-17] MEDS: DIPHTH,PERTUSS(ACELL),TET 0.5 ML DISP.SYRIN IM ONE (14:50)
== END 2023-11-17 14:59 | disposition home or self-care (01) ==
LOC: JERFT 13:57
PROC: 0HQMXZZ Repair Right Foot Skin, External Approach (ICD-10-PCS; principal; 2023-11-17)
PROC: 3E0234Z Introduction of Serum, Toxoid and Vaccine into Muscle, Percutaneous Approach (ICD-10-PCS; 2023-11-17)
DX: S91.311A Laceration without foreign body, right foot, initial encounter (principal); W10.1XXA Fall (on)(from) sidewalk curb, initial encounter; Y92.480 Sidewalk as the place of occurrence of the external cause; Z23 Encounter for immunization
CPT/HCPCS: 12002-25; 90471; 90715; 99283-25

== ENCOUNTER 2023-11-19 17:55 | Emergency (ER) | payer OTHER ==
[2023-11-19 18:02] VITALS: BP 101/68; PULSE 90; RESP 16; TEMP 98.4; BMI 31.5
[2023-11-19] MEDS: IBUPROFEN 600 MG TABLET (FP) PO ONE (19:22)
[2023-11-19] MEDS ORDERED: IBUPROFEN 600 MG TABLET (FP) PO ONE (19:23)
== END 2023-11-19 19:28 | disposition home or self-care (01) ==
LOC: JERFT 17:55
DX: Z48.01 Encounter for change or removal of surgical wound dressing (principal)
CPT/HCPCS: 99281-25

== ENCOUNTER 2024-04-12 07:06 | Emergency (ER) | payer OTHER ==
[2024-04-12 07:30] VITALS: BP 105/65; PULSE 70; RESP 18; TEMP 98.9; BMI 32.3
[2024-04-12] MEDS: KETOROLAC TROMETHAMINE 15 MG/ML VIAL IM ONE (07:40)
[2024-04-12] MEDS ORDERED: KETOROLAC TROMETHAMINE 15 MG/ML VIAL ONE (07:42)
[2024-04-12] MEDS ORDERED: LIDOCAINE 4% PATCH TP ONE (07:42)
[2024-04-12] MEDS: LIDOCAINE 4% PATCH TP ONE (08:09)
[2024-04-12] MEDS ORDERED: LIDOCAINE PATCH REMOVAL MC SCH (22:00)
== END 2024-04-12 10:17 | disposition home or self-care (01) ==
LOC: JER 07:06
PROC: 3E0233Z Introduction of Anti-inflammatory into Muscle, Percutaneous Approach (ICD-10-PCS; principal; 2024-04-12)
DX: M54.50 Low back pain, unspecified (principal)
CPT/HCPCS: 99284-25